=== PATIENT | male | born 1990 | race Caucasian/White ===

== ENCOUNTER → 2021-05-05 | Outpatient (CLI) | payer OTHER, SELFPAY | END | disposition home or self-care (01) | LOC: LABSPEC 05-06 14:50 | PROVIDERS: Visit Provider Physician Assistant | DX: Z20.822 Contact with and (suspected) exposure to COVID-19 (principal) | CPT/HCPCS: 87635; U0005; U0003 ==

== ENCOUNTER 2023-08-24 14:53 | Inpatient (IN) | payer BC, SELFPAY ==
[2023-08-24] VITALS (10 sets, daily range): BP systolic 122–156; BP diastolic 86–112; PULSE 140–151; RESP 20–28; TEMP 36.8–37.2; O2SAT 92–96; BMI 27.9; BMI 30.2
--- OUTSIDE RECORDS SUMMARY | 2023-08-24 16:16 | XMS RPT_ITS | CCD ---
Author Name Unknown Address [address] [place] [address] Organization [facility] Care Team Providers Care [employer] Park[employer] Name Role Phone Unavailable Primary Care Provider Unavaildavid e CHARLA BATEMAN Referring Unavailable CHALRA BATEMAN Referring Unavailable Problems Problem Classification Problem Date Documented Da te Episodic/Chronic Immunizations and screening for infectious disease (1 source) Suspected disease caused by 2019-nCoV; Translations: [Suspected COVID-19 virus infection] Episodic Unclassified (1 source) Suspected COVID-19 virus infection; Translations: [Suspected COVID-19 virus infection] Onset: 09-02-2021 Results Test Name Value Interpretation Reference Range Facil ity Encounters Encounter Date Encounter Type Care Provider Facility Start: 07-14-2022 End: 07-14-2022 ambulatory CHARLA BATEMAN Facility:[facility] Start: 07-14-2022 Telephone encounter Charla gardner 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 Work Phone: [facility] Plan of Treatment Date Care Activity Detail Author Start: 07-14-2022 End: 07-28-2022 Influenza virus A and B RNA and SARS-CoV-2 (COVID-19) N gene panel - Respiratory specimen by BRYAN with probe detection COVID WITH FLUA+B, ROUTINE Microbiology Routine Suspected COVID-19 virus infection Expected: 07/14/2022, Expires: 07/28/2022 [facility] Work Phone: Payers Date Payer Category Payer Unknown MMO MMO [employer] [id number] 2020-Present [phone] [address] [place] [address] PPO [id number] 2020 Unknown [id number] Social History Date Type Detail Facility Tobacco smoking status NHIS Tobacco smoking consumption unknown [facility] Work Phone: Start: 1990 Sex Assigned At Not on file C [facility] Influenza virus A and B RNA and SARS-CoV-2 (COVID-19) N gene panel BRYAN+probe (Resp) 07-14-2022 Note Date & Type Note Facility 07-14-2022 Influenza virus A and B RNA and SARS-CoV-2 (COVID-19) N gene panel BRYAN+probe (Resp) COVID 19 RESULT: SARS-CoV-2 (Agent of COVID-19) Detected by RT-PCR or equivalent method. komal [id number]_[employer] (ALLYSON)_EUA This test was developed and its performance characteristics determined by [facility]'s [facility]. This test has been authorized by FDA under an Emergency Use Authorization (EUA). This test has been validated in accordance with the FDA's Guidance Document Policy for Diagnostics Testing in Laboratories Certified to Perform High Complexity Testing under CLIA prior to Emergency use Authorization for Coronavirus Disease 2019 during the Public Health Emergency issued on October 26, 2019. Test performed by [facility], [facility], [address] [place] [address]. INFLUENZA A PCR: Negative for Influenza A by RT-PCR INFLUENZA B PCR: Negative for Influenza B by RT-PCR [facility] Note 07-14-2022 Telephone Encounter - Charla Bateman APRN.ELECTRICAL ELECTRONICS TECHNICIAN - 07/14/2022 11:24 AM EST Note Date & Type Note Facility 07-14-2022 Miscellaneous Notes Formattin g of this note might be different from the original. COVID-19 (Novel Coronavirus): Jonas calls today with concerns for COVID19. Symptoms: Positive rapid test, sinus congestion, loose stools, cough. You are being tested for COVID-19. You will be notified within 2 days of testing if your test comes back positive. You will be contacted at the number verified to coordinate a testing appointment. While awaiting these results, please refer to the following recommendations from the CDC regarding isolation precautions: No primary care provider on file. has been cc'd to receive Jonas's results. Steps to Follow: Isolation: You should follow the prevention steps below until a healthcare provider or local or state health department says you can return to your normal activities. Stay home except to get medical care People who are mildly ill with COVID-19 are able to isolate at home during their illness. You should restrict activities outside your home, except for getting medical care. Do not go to work, school, or public areas. Avoid using public transportation, ride-sharing, taxis, or public air travel. Separate yourself from other people and animals in your home People: As much as possible, you should stay in a specific room and away from other people in your home. Also, you should use a separate bathroom, if available. Animals: You should restrict contact with pets and other animals while you are sick with COVID-19, just like you would around other people. Although there have not been reports of pets or other animals becoming sick with COVID-19, it is still recommended that people sick with COVID-19 limit contact with animals until more information is known about the virus. When possible, have another member of your household care for your animals while you are sick. If you are sick with COVID-19, avoid contact with your pet, including petting, snuggling, being kissed or licked, and sharing food. If you must care for your pet or be around animals while you are sick, wash your hands before and after you interact with pets and wear a facemask. See COVID-19 and Animals for more information. Call ahead before visiting your doctor If you have a medical appointment, call the healthcare provider and tell them that you have or may have COVID-19. This will help the healthcare provider's office take steps to keep other people from getting infected or exposed. Personal Protection: You should wear a facemask when you are around other people (e.g., sharing a room or vehicle) or pets. If you are not able to wear a facemask (for example, because it causes trouble breathing), then people who live with you should not stay in the same room with you, or they should wear a facemask if they enter your room. Cover your coughs and sneezes Cover your mouth and nose with a tissue when you cough or sneeze. Throw used tissues in a lined trash can. Immediately wash your hands with soap and water for at least 20 seconds or, if soap and water are not available, clean your hands with an alcohol-based hand retail sales associate that contains at least 60% alcohol. Wash your hands often with soap and water for at least 20 seconds, especially after blowing your nose, coughing, or sneezing; going to the bathroom; and before eating or preparing food. If soap and water are not readily available, use an alcohol-based hand retail sales associate with at least 60% alcohol, covering all surfaces of your hands and rubbing them together until they feel dry. Soap and water are the best option if hands are visibly dirty. Avoid touching your eyes, nose, and mouth with unwashed hands. Avoid sharing personal household items You should not share dishes, drinking glasses, cups, eating utensils, towels, or bedding with other people or pets in your home. After using these items, they should be washed thoroughly with soap and water. Clean all High-touch surfaces everyday High touch surfaces include counters, tabletops, doorknobs, bathroom fixtures, toilets, phones, keyboards, tablets, and bedside tables. Use a household cleaning spray or wipe, according to the label instructions. Labels contain instructions for safe and effective use of the cleaning product including precautions you should take when applying the product, such as wearing gloves and making sure you have good ventilation during use of the product. Monitor your symptoms: Seek prompt medical attention if your illness is worsening (e.g., difficulty breathing). Before seeking care, call your healthcare provider and tell them that you have, or are being evaluated for, COVID-19. Put on a facemask before you enter the facility. These steps will help the healthcare provider's office to keep other people in the office or waiting room from getting infected or exposed. If you have a medical emergency and need to call 911, notify the dispatch personnel that you have, or are being evaluated for COVID-19. If possible, put on a facemask before emergency medical services arrive. Discontinuing home isolation: Patients with confirmed COVID-19 should remain under home isolation precautions until the risk of secondary transmission to others is thought to be low. The decision to discontinue home isolation precautions should be made on a [id number] basis, in consultation with healthcare providers and state and local health departments. Close contacts (household members, intimate partners, and caregivers) should follow these recommendations: Close contacts should monitor their health; they should call their healthcare provider right away if they develop symptoms suggestive of COVID-19 (e.g., fever, cough, shortness of breath) (see Interim [place] Guidance for Risk Assessment and Public Health Management of Persons with Potential Coronavirus Disease 2019 (COVID-19) Exposure in Travel-associated or Community Settings.) Make sure that you understand and can help the patient follow their healthcare provider's instructions for medication(s) and care. You should help the patient with basic needs in the home and provide support for getting groceries, prescriptions, and other personal needs. Monitor the patient's symptoms. If the patient is getting sicker, call their healthcare provider and tell them that the patient is being tested for COVID-19. This will help the healthcare provider's office take steps to keep other people in the office or waiting room from getting infected. Ask the healthcare provider to call the local or state health department for additional guidance. If the patient has a medical emergency and you need to call 911, notify the dispatch personnel that the patient has, or is being evaluated for COVID-19. Household members should stay in another room or be from the patient as much as possible. Household members should use a separate bedroom and bathroom, if available. Prohibit visitors who do not have an essential need to be in the home. Make sure that shared spaces in the home have good air flow, such as by an air conditioner or an opened window, weather permitting. Perform hand hygiene frequently. Wash your hands often with soap and water for at least 20 seconds or use an alcohol-based hand retail sales associate that contains 60 to 95% alcohol, covering all surfaces of your hands and rubbing them together until they feel dry. Soap and water should be used preferentially if hands are visibly dirty. Avoid touching your eyes, nose, and mouth with unwashed hands. The patient should wear a facemask when around other people. If the patient is not able to wear a facemask (for example, because it causes trouble breathing), you, as the caregiver, should wear a mask when you are in the same room as the patient. Wear a disposable facemask and gloves when you touch or have contact with the patient's blood, stool, or body fluids, such as saliva, sputum, nasal mucus, vomit, urine. Throw out disposable facemasks and gloves after using them. Do not reuse. When removing personal protective equipment, first remove and dispose of gloves. Then, immediately clean your hands with soap and water or alcohol-based hand retail sales associate. Next, remove and dispose of facemask, and immediately clean your hands again with soap and water or alcohol-based hand retail sales associate. Avoid sharing household items with the patient. You should not share dishes, drinking glasses, cups, eating utensils, towels, bedding, or other items. After the patient uses these items, you should wash them thoroughly Wash laundry thoroughly. Immediately remove and wash clothes or bedding that have blood, stool, or body fluids on them. Wear disposable gloves while handling soiled items and keep soiled items away from your body. Clean your hands (with soap and water or an alcohol-based hand retail sales associate) immediately after removing your gloves. Read and follow directions on labels of laundry or clothing items and detergent. In general, using a normal laundry detergent according to washing machine instructions and dry thoroughly using the warmest temperatures recommended on the clothing label. Place all used disposable gloves, facemasks, and other contaminated items in a lined container before disposing of them with other household waste. Clean your hands (with soap and water or an alcohol-based hand retail sales associate) immediately after handling these items. Soap and water should be used preferentially if hands are visibly dirty. Discuss any additional questions with your state or local health department or healthcare provider. Additional information Home healthcare personnel should refer to Interim Infection Prevention and Control Recommendations for Patients with Known or Patients Under Investigation for Coronavirus Disease 2019 (COVID-19) in a Healthcare Setting. Close contact is defined as-- a) being within approximately 6 feet (2 meters) of a COVID-19 case for a prolonged period of time; close contact can occur while caring for, living with, visiting, or sharing a health care waiting area or room with a COVID-19 case - or - b) having direct contact with infectious secretions of a COVID-19 case (e.g., being coughed on). documented in this encounter [facility] Evaluation note Note Date & Type Note Facility documented in this encounter [facility] Summary Purpose Family History No Family History Records Found Advance Directives No Advanced Directives Records Found Additional Source Comments Source Comments (unrecognize d section and content) In the event this informatio n is protected by the Federal Confidentiality of Alcohol and Drug Abuse Patient Records regulations: The Federal rules restrict any use of the information to criminally investigate or prosecute any alcohol or drug abuse patient.[facility] Reason for Visit (unrecogniz ed section and content) (unrecognized sect ion and content) No Status Records Found INFORMATION SOURCE (unrecogn ized section and content) FOR RECORDS PERTAINING TO PATIENTS WHO ARE OR HAVE BEEN ENROLLED IN A CHEMICAL DEPENDENCY/SUBSTANCEABUSE PROGRAM, SOME INFORMATION MAY BE OMITTED. This clinical summary was aggregated from multiple sources. Caution should be exercised in using it in the provision of clinical care. This summary normalizes information from multiple sources, and as a consequence, information in this document may materially change the coding, format and clinical context of patient data. In addition, data may be omitted in some cases. CLINICAL DECISIONS SHOULD BE BASED ON THE PRIMARY CLINICAL RECORDS. [facility]. provides no warranty or guarantee of the accuracy or completeness of information in this document.
--- NOTE | 2023-08-24 16:32 | EDS_ITS ---
HPI History of Present Illness Chief Complaint: Shortness of Breath Informant: patient Associated Symptoms cough Chest Pain: Positive for None Narrative Narrative: Patient on day #3 of illness with cough, nausea/vomiting, subjective fevers and chills, myalgias, headache, malaise, along with bilateral chest pain and some shortness of breath. He is a healthy 33-year-old male. No history of DVT or PE or recent leg pain or swelling. No recent immobilization, long travel, hospitalization, or surgery. He denies any pleuritic symptoms. States he cannot hold any fluids down he has not had anything to eat in 4 days and is not having any bowel movement but denies any abdominal pain. Positive sick contact at work who had allegedly had COVID. PFSH [facility] Medical History (Updated 08/24/23 @ 18:[address] Clifford Uribe MD) Encounter for screening for COVID-19 Medical History no medical history no medical history Home Medications NK 05/05/21 [History Last Taken Unknown] Allergy/AdvReac Type Severity Reaction Status Date / Time No Known Allergies Allergy Verified 08/24/23 14:53 Family History (Updated 05/05/21 @ 14:28 by Yolanda West) Other Cancer Diabetes Social History Smoking Status: Never smoker ROS ROS ED Constitutional Constitutional ED: Reports body ache(s), chills, fatigue, fever(s), headache(s) and malaise Eyes Eyes: Denies change in vision or diplopia ENT ENT ED: Denies rhinorrhea or sore throat Cardiovascular Cardiovascular: Reports chest pain; Denies leg edema, palpitations or syncope Respiratory/Chest Respiratory/Chest: Reports cough, dyspnea, dyspnea on exertion and sputum Gastrointestinal Gastrointestinal: Reports nausea and vomiting; Denies abdominal pain or diarrhea Genitourinary Genitourinary ED: Denies dysuria or hematuria Musculoskeletal Musculoskeletal: Denies back pain or neck pain Integumentary Denies abscess or rash Neurologic Neurologic: Reports headache(s); Denies paresthesias or weakness Psychiatric Psychiatric: Denies anxiety or suicidal thoughts EXAM Physical Exam Const Vital Signs: 08/24/23 14:54 08/24/23 15:38 08/24/23 15:38 Temperature 99 F Temperature Source Temporal Pulse Rate 145 H 149 H Respiratory Rate 25 H 27 H Respiratory Effort Short of Breath Respiratory Depth Shallow Respiratory Pattern Normal Blood Pressure 122/89 H 156/107 H Blood Pressure Mean 100 123 Pulse Ox 95 96 Oxygen Delivery Method Room Air Room Air Room Air 08/24/23 16:45 08/24/23 18:00 08/24/23 18:54 Temperature 98.7 F 98.9 F 98.2 F Temperature Source Temporal Temporal Oral Pulse Rate 150 H 151 H Respiratory Rate 28 H 27 H Respiratory Effort Respiratory Depth Respiratory Pattern Blood Pressure 140/89 H 142/112 H Blood Pressure Mean 106 122 Pulse Ox 93 92 Oxygen Delivery Method Room Air Room Air 08/24/23 19:42 Temperature Temperature Source Pulse Rate 142 H Respiratory Rate 24 H Respiratory Effort Respiratory Depth Respiratory Pattern Tachypnea Blood Pressure Blood Pressure Mean Pulse Ox Oxygen Delivery Method Positive well nourished and well developed Constitutional Narrative: Malaised-appearing, no distress Actively vomiting nonbilious nonbloody emesis General Appearance ED: well developed and NAD HEENT Reports moist mucous membranes normocephalic and atraumatic Eyes PERRL and EOMs intact bilaterally Neck full ROM, no lymphadenopathy, supple and no meningeal signs Resp Resp Narrative: tachypneic. No respiratory distress. Rales and rhonchi in the left base otherwise clear. Cardio regular rate, regular rhythm and no murmurs Rate: tachycardic GI non-tender and non-distended Auscultation: normoactive bowel sounds Palpation: soft Back/Spine no CVA tenderness General Back: other FROM Extremity normal to inspection and no calf tenderness General Extremety ED: Negative for edema, pulses abnormal or tenderness General Extremity: Negative for edema or pulses abnormal Neuro oriented x3, CN's II-XII intact bilaterally and no sensory deficits noted Sensorium / Orientation: awake and alert Speech: speech normal Gait (Neuro): normal gait Motor Exam: strength 5/5 throughout Psych mental status grossly normal Skin no rashes or lesions noted and no wounds Sepsis Attestation Sepsis Alert: Yes Sepsis Attestation: Agree w/Sepsis Date exam was performed: 08/24/23 Time exam was performed: 18:15 Possible Source of Sepsis: Pulmonary Sepsis Organ Dysfunction Criteria Present: Lactic Acid > 2 mmol/L and Serum CO2 < 20 mmol/L (on BMP) Fluid Resuscitation Fluid resuscitation indicated?: Yes Fluid Resuscitation ordered: 30 ml/kg fluid bolus ordered Amount of fluid ordered: 3,000 Sepsis Note Date exam was performed: 08/24/23 Time exam was performed: 19:30 Sepsis Attestation: Sepsis re-evaluation was performed (Persistent tachycardia. No respiratory failure. Perfused extremities and intact pulses, blood pressure stable.) MDM MDM MDM Narrative Medical decision making narrative: Clinically patient with Rales and rhonchi in the left base and concern of pneumonia here, and his basilar that could be causing his vomiting. 2 view chest x-ray my interpretation confirms this, left lower lobe pneumonia. Radiology in agreement. He has a significant leukocytosis. At this point still tachycardic better with Zofran wanting some Mylanta which is ordered in addition to sepsis-protocol pneumonia antibiotics. His lactate returned at 4.8. IV fluids ordered to complete the 30 cc/kg IV fluid bolus. His blood sugar is 434 and he is not a known diabetic. Insulin ordered for that and we will reevaluate. He still having significant chest discomfort despite his troponin being within normal limits, he states it feels like bad reflux despite getting Mylanta. He wants something else. Ordered viscous lidocaine as well as an albuterol aerosol, discussed with medicine for admission to PCU to continue treatment. Lab Data Attestation: I reviewed the patient's lab results. Labs: Laboratory Results - last 24 hr 08/24/23 16:44 WBC 18.4 H RBC 5.60 Hgb 16.4 Hct 47.2 MCV 84.3 MCH 29.3 MCHC 34.7 RDW Std Deviation 34.7 L RDW Coeff of Zarina 11.3 L Plt Count 301 MPV 9.4 Immature Gran % (Auto) 0.400 Neut % (Auto) 88.7 H Lymph % (Auto) 4.6 L Sully % (Auto) 5.5 Eos % (Auto) 0.0 Baso % (Auto) 0.8 Absolute Neuts (auto) 16.4 H Absolute Lymphs (auto) 0.85 Nucleated RBC % 0 Differential Comment SCANNED PT 15.5 H INR 1.2 APTT 37.8 H Sodium 121 L Potassium 4.1 Chloride 82 L Carbon Dioxide 12.0 L Anion Gap 27 H BUN 21 H Creatinine 1.31 H Estim Creat Clear Calc 91.51 Est GFR (MDRD) Af Amer 80 Est GFR (MDRD) Non-Af 66 BUN/Creatinine Ratio 16.0 Glucose 434 H Lactic Acid 4.8 H* Calcium 13.8 H* Total Bilirubin 1.40 H AST 119 H ALT 144 H Alkaline Phosphatase 113 Troponin I High Sens 7 Total Protein 8.8 H Albumin 2.6 L Globulin 6.2 H Albumin/Globulin Ratio 0.4 L Radiography Diagnostic Testing: Clinical Impression(s) from Imaging Studies Chest X-Ray 08/24/23 17:00 IMPRESSION: Left lower lobe infiltrate consistent with pneumonia. Electronically Signed: Pro Augustine MD at 17:31 EST , Rhythm Strip Rhythm Strip: Sinus Tach Rate: 150 Ectopy: None EKG Initial EKG: Attestation: I personally reviewed and interpreted this EKG as follows: Interpretation: No Acute Injury Pattern, Sinus Tachycardia and Non- Specific ST Changes Management Discussion w/another healthcare provider: Hospitalist Critical Care Time Critical Care Time: Yes Critical care time (excluding procedures): 30-74 minutes (32 min), Including time spent:, Discussing w/Patient &/or Family/Home Housekeeper, Discussing w/Consultants, Arranging Admission or Transfer and Performing Direct Patient Care at Bedside Discharge Plan Dx/Rx/DC Orders Clinical Impression: Acute hyperglycemia, Sepsis due to pneumonia, Pneumonia, Hypercalcemia Disposition Disposition: [facility] Discharge Date/Time: 08/24/23 20:45
[2023-08-24] MEDS: 0.9% Normal Saline (1000mL) 1,000 ML 999 ML IV ×2 (16:43→18:27)
[2023-08-24] MEDS: Ondansetron 4 MG/2 ML Vial IV ×2 (16:43→22:54)
--- NOTE | 2023-08-24 16:48 | ED.RN ---
NO OLD EKG
--- NOTE | 2023-08-24 17:00 | RAD_ITS ---
INDICATION: Cough and shortness of breath EXAMINATION/TECHNIQUE: X-RAY - XR Chest 2 Views COMPARISON: None. FINDINGS: LINES/DEVICES: None. LUNGS: Left lower lobe posterior airspace consolidation. No pleural effusion. MEDIASTINUM AND CARDIOVASCULAR STRUCTURES: Cardiac silhouette not enlarged. Central airways and mediastinal contour are unremarkable. BONES AND SOFT TISSUES: Unremarkable. RAD/Chest PA and Lateral IMPRESSION: Left lower lobe infiltrate consistent with pneumonia. Electronically Signed: Pro Augustine MD at 17:31 EST ,
[2023-08-24 17:05] LABS: Absolute Lymphocyte Count 0.85 X10^3/uL (0.83-4.51); Absolute Neutrophil Count 16.4 X10^3/uL (2.0-7.7); Basophil# 0.14 X10^3/uL; Basophil% 0.8 % (0-1); Hematocrit 47.2 % (40-54); Hemoglobin 16.4 g/dL (13.0-16.5); Lymphocyte # 0.85 X10^3/ul (0.83-4.51); Lymphocyte % 4.6 % (19-41); Mean Corp Hgb Conc 34.7 g/dL (32-36); Mean Corpuscular Hgb 29.3 pg (27.0-32.0); Mean Corpuscular Volume 84.3 fL (80-94); Mean Platelet Vol. 9.4 fl (6.2-12.0); Monocyte# 1.01 X10^3/uL; Monocyte% 5.5 % (0-10); NRBC Flagged by Analyzer 0 % (0-5); Neutrophil # 16.35 X10^3/uL (2.7-7.7); Neutrophil % 88.7 % (47-70); POSITIVE MORPHOLOGY YES; Platelet Count 301 K/mm3 (150-450); RBC Distribution Width CV 11.3 % (11.6-14.6); RBC Distribution Width SD 34.7 fl (35.1-43.9); White Blood Count 18.4 K/mm3 (4.4-11.0)
[2023-08-24 17:09] LABS: Differential Indicated SCAN CRITERIA MET
[2023-08-24 17:13] LABS: Partial Thromboplast Time 37.8 Seconds (24.1-36.2)
[2023-08-24 17:20] LABS: International Normalized Ratio 1.2; Prothrombin Time (Protime)PT. 15.5 SECONDS (11.7-14.9)
[2023-08-24 17:36] LABS: Differential Comment SCANNED
[2023-08-24 17:55] LABS: ALB/GLOB Ratio 0.4 RATIO (0.9-2.4); AST(SGOT) 119 U/L (15-37); Alanine Aminotransfer ALT/SGPT 144 U/L (16-61); Albumin, Serum 2.6 g/dL (3.2-5.0); Alkaline Phosphatase 113 U/L (45-117); Anion Gap 27 (5-15); BUN 21 mg/dL (7-18); Calcium,Total 13.8 mg/dL (8.5-10.1); Chloride 82 mmol/L (98-107); Creatinine, Serum 1.31 mg/dL (0.70-1.30); EST Glomerular Filtration Rate 66 mL/min (>60); Est Glom Filt Rate - Afr Amer 80 mL/min (>60); Estimated Creatinine Clearance 91.51 ml/min; Globulin 6.2 g/dL (2.2-4.2); Glucose 434 mg/dL (74-106); Lactic Acid 4.8 mmol/L (0.4-1.9); Potassium 4.1 mmol/L (3.5-5.1); Protein, Total 8.8 g/dL (6.4-8.2); Sodium Level 121 mmol/L (136-145); Troponin-I HS 7 pg/mL (3.0-78.0)
[2023-08-24] MEDS: Mag Hydrox/Al Hydrox/Simeth 30 ML UDC PO (18:23)
[2023-08-24] MEDS: Ceftriaxone 2 GM in 0.9% Normal Saline (50mL MB+) 50 ML IV (18:26)
[2023-08-24] MEDS: 0.9% Normal Saline 1,000 ML IV.SOLN. 964 ML OPERA.SITE (18:39)
[2023-08-24] MEDS: Azithromycin 500 MG in Dextrose 5%-Water (250mL Bag) 250 ML 250 MG IV (18:45)
--- NOTE | 2023-08-24 19:14 | PCM.HP.STD ---
HPI - General General Date of Admission: 08/24/23 Date of Service: 08/24/23 Chief Complaint: Nausea/vomiting, malaise HPI Narrative JONAS MCLEOD, is a 33 M who presented to [facility] ED on 08/24/2023 with a 3-day history of nausea/vomiting, malaise, subjective fevers and chills, myalgias and cough. Patient seen at bedside in the ED. Patient is very healthy at baseline, does not take medications at home, no previous history of any significant medical issues. 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 Denies any significant work exposures. Has had a few coworkers that have had mild upper respiratory illnesses recently, and has a friend that currently is COVID. Patient had COVID in the past, states he feels much sicker now compared to when he had COVID. Patient notably has a younger brother who was diagnosed with type 1 diabetes mellitus in his early to mid 20s, seemed to have a similar presentation to his at that time. Patient states that his mother and brother are concerned that he could have new onset diabetes. Patient has had fairly significant nausea and vomiting over the last 3 days. He has not been able to eat or drink much at all during that timeframe. He reports a mild cough over that time that is nonproductive in nature. Reports intermittent fevers and chills. Reports mild bilateral chest pain that he attributes to vomiting and his cough. Patient otherwise denies any abdominal pain or discomfort currently. He does report some symptoms of acid reflux, states Tums have been helpful for him at home for this. No other acute concerns at this time. [facility] Medical History (Updated 08/25/23 @ 00:[address] Delta Juarez, DO) Encounter for screening for COVID-19 Medical History no medical history Home Medications NK 05/05/21 [History Last Taken Unknown] Allergy/AdvReac Type Severity Reaction Status Date / Time No Known Allergies Allergy Verified 08/24/23 14:53 Family History (Updated 05/05/21 @ 14:28 by Yolanda West) Other Cancer Diabetes Social History Smoking Status: Never smoker ROS Constitutional Constitutional: Reports chills, fatigue, fever(s) and malaise; Denies change in weight or weakness Eyes Eyes: Denies change in vision ENT HEENT: Reports headache(s) and sore throat; Denies nasal congestion, nasal discharge or sinus pressure Cardiovascular Cardiovascular: Reports rapid heart rate; Denies chest pain, dyspnea on exertion, edema, lightheadedness or palpitations Respiratory/Chest Respiratory/Chest: Reports cough; Denies dyspnea, productive cough, shortness of breath at rest, shortness of breath with exertion or wheezing Gastrointestinal Gastrointestinal: Reports diarrhea, nausea and vomiting; Denies abdominal pain or constipation Genitourinary Genitourinary: Reports urinary frequency; Denies dysuria Musculoskeletal Musculoskeletal: Denies back pain Neurologic Neurologic: Reports headache(s); Denies dizziness, focal weakness, numbness or paresthesias Vital Signs Vital Signs Vital Signs: 08/24/23 14:54 08/24/23 15:38 08/24/23 15:38 Temperature 99 F Temperature Source Temporal Pulse Rate 145 H 149 H Respiratory Rate 25 H 27 H Respiratory Effort Short of Breath Respiratory Depth Shallow Respiratory Pattern Normal Blood Pressure 122/89 H 156/107 H Blood Pressure Mean 100 123 Pulse Ox 95 96 Oxygen Delivery Method Room Air Room Air Room Air 08/24/23 16:45 08/24/23 18:00 08/24/23 18:54 Temperature 98.7 F 98.9 F 98.2 F Temperature Source Temporal Temporal Oral Pulse Rate 150 H 151 H Respiratory Rate 28 H 27 H Respiratory Effort Respiratory Depth Respiratory Pattern Blood Pressure 140/89 H 142/112 H Blood Pressure Mean 106 122 Pulse Ox 93 92 Oxygen Delivery Method Room Air Room Air Weight Weight: 98.8 kg Body Mass Index (BMI) 27.9 Physical Exam Const alert, oriented x3, no apparent distress, average body habitus, healthy appearing and well nourished Constitutional Narrative: Pleasant younger male, sitting up in bed, appears mildly flushed in the face and fatigued, otherwise conversing normally, no acute distress. General Appearance: cooperative, comfortable, well kempt and well developed HEENT normocephalic, head/scalp atraumatic, hearing grossly normal bilaterally and nasal mucous membranes and turbinates normal HEENT Narrative: Dry mucous membranes. Eyes PERRL, EOMs intact bilaterally and conjunctivae normal Neck full ROM, no lymphadenopathy and supple Lymph Lymphatic: no lymphadenopathy noted Chest inspection of chest normal Resp normal respiratory effort, normal air movement, no use of accessory muscles and clear to auscultation bilaterally Cardio no murmurs and peripheral pulses 2+ throughout Cardio Narrative: Sinus tachycardia. GI normal to inspection, nondistended, normoactive bowel sounds, soft to palpation, non-tender and non-distended Back/Spine normal ROM Extremity normal to inspection, full ROM and no pedal edema Skin no rashes or lesions noted Neuro moves all extremities and no focal motor deficits Speech: speech normal Psych mental status grossly normal Results Lab / Micro Data 08/24/23 16:44 08/24/23 21:03 Labs: Laboratory Results - last 24 hr 08/24/23 16:44: WBC 18.4 H, RBC 5.60, Hgb 16.4, Hct 47.2, MCV 84.3, MCH 29.3, MCHC 34.7, RDW Std Deviation 34.7 L, RDW Coeff of Zarina 11.3 L, Plt Count 301, MPV 9.4, Immature Gran % (Auto) 0.400, Neut % (Auto) 88.7 H, Lymph % (Auto) 4.6 L, [place] % (Auto) 5.5, Eos % (Auto) 0.0, Baso % (Auto) 0.8, Absolute Neuts (auto) 16.4 H, Absolute Lymphs (auto) 0.85, Nucleated RBC % 0, Differential Comment SCANNED, PT 15.5 H, INR 1.2, APTT 37.8 H, Sodium 121 L, Potassium 4.1, Chloride 82 L, Carbon Dioxide 12.0 L, Anion Gap 27 H, BUN 21 H, Creatinine 1.31 H, Estim Creat Clear Calc 91.51, Est GFR (MDRD) Af Amer 80, Est GFR (MDRD) Non-Af 66, BUN/Creatinine Ratio 16.0, Glucose 434 H, Lactic Acid 4.8 H*, Calcium 13.8 H*, Total Bilirubin 1.40 H, AST 119 H, ALT 144 H, Alkaline Phosphatase 113, Troponin I High Sens 7, Total Protein 8.8 H, Albumin 2.6 L, Globulin 6.2 H, Albumin/Globulin Ratio 0.4 L Micro: Microbiology 08/24/23 16:45 Nasal Secretion SARS-CoV-2 & FLU Antigen (Rapid) - Final Rhythm Strip Rhythm Strip: Sinus Tach Rate: 150 Ectopy: None Imagaing Radiology Impression Chest X-Ray 08/24/23 17:00 IMPRESSION: Left lower lobe infiltrate consistent with pneumonia. Electronically Signed: Pro Augustine MD at 17:31 EST , Assessment & Plan Assessment/Plan (1) DKA (diabetic ketoacidoses): (2) Sepsis due to pneumonia: (3) Hypercalcemia: PLAN: Plan Patient is a 33-year-old male who presented to [facility] ED on 08/24/2023 with nausea/vomiting and malaise. 1. DKA, new onset diabetes mellitus Blood glucose 434 on admit. Initial bicarb 12, anion gap 27 but was thought this was due to lactic acidosis in setting of pneumonia with sepsis, was initially admitted to the PCU. However, repeat bicarb was 9 and UA showed 150 ketones, was presumed that patient is in DKA with new onset diabetes. ? Admit under inpatient status to the ICU. DKA order set used to place orders. Insulin drip started. Patient has received 3 L normal saline to this point, potassium 3.7, will start maintenance IV fluids with potassium supplementation. BMP every 4 hours. N.p.o. while on insulin drip. Have higher concern for new onset type 1 diabetes, as patient's brother had similar presentation a few years back and patient is not a classic type 2 diabetes patient, but cannot know for sure at this point. C-peptide ordered, but I believe this is a send out order so will take several days to result. Unable to find RAMSEY-65 order but recommend ordering this as well if possible. 2. Community-acquired pneumonia with unknown organism, sepsis without shock, anion gap metabolic acidosis with lactic acidosis Chest x-ray on admit showed left lower lobe infiltrate consistent with pneumonia. WBC count 18 K, tachycardic, tachypneic, lactate 4.8, met sepsis criteria. Afebrile, normotensive to hypertensive since admission. S/p 3 L IV fluids in the ED with improvement in tachycardia, lactate improved to 3.4. ? Treat with ceftriaxone and azithromycin for now. Sputum culture, respiratory PCR panel, urine antigens, blood cultures ordered. Trend lactate. Trend CBC. 3. Hyponatremia Sodium 121 on admit, corrected sodium of 126 with hyperglycemia. Baseline sodium unknown. Suspect secondary to very poor recent p.o. intake. Notably reports minimal alcohol use. S/p 3 L normal saline in ED, sodium improved to 124. ? Trending BMP every 4 hours. Urine sodium, urine osmolality and serum osmolality ordered. Maintenance IV fluids as noted above. 4. Elevated liver enzymes AST 119, ALT 144, alk phos 113, T. bili 1.40 on admit. Unclear etiology at this point, could be secondary to mild shock liver in setting of significant hypovolemia. Patient denies history of IV drug use. Minimal alcohol use as noted above. BMI 30 on admit, could potentially have mild degree of PEREIRA. ? Right upper quadrant ultrasound ordered. Hepatitis panel ordered. Trend LFTs. 5. Hypercalcemia, improving; protein gap Calcium 13.8 on admit, albumin 2.6, corrected calcium 14.9. Calcium improved to 11.6 with IV fluids. Unclear etiology. Protein gap noted, total protein 8.8 with albumin 2.6. ? Trend calcium daily. Maintenance IV fluids as noted above. PTH, 1?25 dihydroxy vitamin D and 25?hydroxy vitamin D ordered. Unsure of what to make of protein gap, will hold on ordering SPEP/UPEP or other orders for now, can consider ordering as needed. DVT prophylaxis: Lovenox CODE STATUS: Full code, verified Expected disposition: Home, TBD Total clinical time spent by myself addressing the patient's medical issues, reviewing all the data, and collaborating with patient's care team: 75 minutes. Charges/Coding Visit Charges Inpatient E&M: 56026 Init Hosp L3
[2023-08-24] MEDS: Albuterol 2.5 MG/3 ML VIAL.NEB. INHALATION (19:42)
[2023-08-24] MEDS: Metoclopramide 10 MG/2 ML Vial 5 MG IV (20:28)
[2023-08-24] MEDS: Insulin Lispro 100 UNIT/ML INSULN.PEN 16 UNIT SC (20:30)
--- OUTSIDE RECORDS SUMMARY | 2023-08-24 20:33 | XMS RPT_ITS | CCD ---
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 2020 Unknown [id number] Social History Date Type Detail Facility Tobacco smoking status NHIS Tobacco smoking consumption unknown [facility] Work Phone: Start: 1990 Sex Assigned At Not on file C [facility] Influenza virus A and B RNA and SARS-CoV-2 (COVID-19) N gene panel BRYAN+probe (Resp) 07-14-2022 Note Date & Type Note Facility 07-14-2022 Influenza virus A and B RNA and SARS-CoV-2 (COVID-19) N gene panel BRYAN+probe (Resp) COVID 19 RESULT: SARS-CoV-2 (Agent of COVID-19) Detected by RT-PCR or equivalent method. komal [id number] (ALLYSON)_EUA This test was developed and its performance characteristics determined by [facility]'s [facility] [place]. This test has been authorized by FDA under an Emergency Use Authorization (EUA). This test has been validated in accordance with the FDA's Guidance Document Policy for Diagnostics Testing in Laboratories Certified to Perform High Complexity Testing under CLIA prior to Emergency use Authorization for Coronavirus Disease 2019 during the Public Health Emergency issued on October 26, 2019. Test performed by [facility], [facility] [place], [address] [place] [address]. INFLUENZA A PCR: Negative for Influenza A by RT-PCR INFLUENZA B PCR: Negative for Influenza B by RT-PCR [facility] Note 07-14-2022 Telephone Encounter - Charla Bateman APRN.ROUNDING MACHINE OPERATOR - 07/14/2022 11:24 AM EST Note Date [...] clean your hands with an alcohol-based hand team primary care physician that contains at least 60% alcohol. Wash your hands often with soap and water for at least 20 seconds, especially after blowing your nose, coughing, or sneezing; going to the bathroom; and before eating or preparing food. If soap and water are not readily available, use an alcohol-based hand team primary care physician with at least 60% alcohol, covering all [...] isolation precautions should be made on a [id number] basis, in consultation with healthcare providers and [...] 20 seconds or use an alcohol-based hand team primary care physician that contains 60 to 95% alcohol, covering [...] with soap and water or alcohol-based hand team primary care physician. Next, remove and dispose of facemask, and immediately clean your hands again with soap and water or alcohol-based hand team primary care physician. Avoid sharing household items with the patient. [...] soap and water or an alcohol-based hand team primary care physician) immediately after removing your gloves. Read and [...] soap and water or an alcohol-based hand team primary care physician) immediately after handling these items. Soap and [...] being coughed on). documented in this encounter [facility] Evaluation note Note Date & Type Note Facility documented in this encounter [facility] Summary Purpose Family History No [...] or prosecute any alcohol or drug abuse patient.[facility] Reason for Visit (unrecogniz ed [...] BE BASED ON THE PRIMARY CLINICAL RECORDS. [facility] [employer] [facility]. provides no warranty or guarantee of the accuracy or completeness of information in this document.
[2023-08-24 20:47] LABS: Bacteria 0 SEEN /hpf (None Seen); Mucous, Urine 0 SEEN /hpf (<or=2+); Red Blood Cells-Urine 0 SEEN /hpf (0-5); Squamous Epithelial Cells - UA 0 SEEN /hpf (0-5); White Blood Cells 0 SEEN /hpf (0-5)
[2023-08-24 20:48] LABS: Color, Urine Yellow (Yellow); Glucose, Dipstick 1000 mg/dl (Normal); Leukocyte Esterase-Dipstick Negative /ul (Negative); Nitrite-Dipstick Negative (Negative); Occult Blood-Urine 25 /ul (Negative); Protein-Dipstick 100 mg/dl (Negative); Urine Bilirubin Dipstick Negative (Negative); Urine Clarity Clear (Clear); Urine Urobilinogen Normal (Normal)
[2023-08-24 20:51] LABS: Reflex Lactate? Y
[2023-08-24 20:52] LABS: Ketone-Dipstick 150 mg/dl (Negative)
[2023-08-24 20:59] LABS: Urine Sodium 47 mmol/L (Not Establ.)
[2023-08-24] MEDS: 0.9% Normal Saline (1000mL) 1,000 ML 100 ML IV (21:16)
[2023-08-24 21:23] LABS: Ionized Calcium 5.94 mg/dL (4.36-5.20)
[2023-08-24] MEDS: Insulin Lispro 100 UNIT/ML INSULN.PEN SC (21:27)
[2023-08-24 21:36] LABS: Anion Gap 24 (5-15); BUN 21 mg/dL (7-18); BUN/Creat Ratio 18.1 RATIO (10-20); Calcium,Total 11.6 mg/dL (8.5-10.1); Chloride 91 mmol/L (98-107); Creatinine, Serum 1.16 mg/dL (0.70-1.30); EST Glomerular Filtration Rate 76 mL/min (>60); Est Glom Filt Rate - Afr Amer 92 mL/min (>60); Estimated Creatinine Clearance 97.56 ml/min; Glucose 406 mg/dL (74-106); Potassium 3.7 mmol/L (3.5-5.1); Sodium Level 124 mmol/L (136-145)
[2023-08-24 21:37] LABS: Osmolality, Urine 654 mOsm/KG
[2023-08-24 21:37] LABS: Ionized Calcium Order 5.94; Osmolality, Serum 293 mOsm/KG (275-295)
[2023-08-24 21:47] LABS: Bedside Glucose 331 mg/dL (74-106)
[2023-08-24 22:16] LABS: Magnesium 1.9 mg/dL (1.6-2.6)
[2023-08-24 22:30] LABS: Lactic Acid 3.4 mmol/L (0.4-1.9)
[2023-08-24] MEDS: 0.9% Saline Lock 10 ML Syringe IV (22:54)
[2023-08-24] MEDS: KCL 20MEQ in 0.45%NS 20 MEQ/1,000 ML IV.SOLN. 125 MEQ IV (23:27)
[2023-08-25] VITALS (24 sets, daily range): BP systolic 119–168; BP diastolic 82–109; PULSE 101–137; RESP 18–27; TEMP 36.3–37.1; O2SAT 93–97
--- NOTE | 2023-08-25 00:02 | US_ITS ---
INDICATION: elevated LFTs, evaluate RUQ EXAMINATION: Ultrasound Right Upper Quadrant Ultrasound TECHNIQUE: Garcia-scale and color Doppler imaging was performed of the abdomen. COMPARISON: No relevant prior comparison study available FINDINGS: LIVER: The liver is echogenic in texture and mildly enlarged measuring about 18.4 cm in length. The portal vein is patent with normal hepatopedal flow. No focal hepatic lesion. No intrahepatic biliary ductal dilatation. There is no free fluid. GALLBLADDER AND BILIARY TREE: No shadowing gallstone, pericholecystic fluid or gallbladder wall thickening is demonstrated. The gallbladder wall measures 1 mm. The proximal common bile duct measures 2 mm, which is within normal limits for the patient''s age. SONOGRAPHIC ALICEA''S SIGN: Negative. PANCREAS: No focal abnormality is demonstrated in the visualized portions of the pancreas. The tail of the pancreas is obscured by bowel gas. No pancreatic ductal dilatation. KIDNEYS: The right kidney measures about 14.8 cm in length. No evidence of hydronephrosis. US/Abdomen Limited IMPRESSION: 1. Mild hepatomegaly. 2. Echogenic liver which may reflect fatty infiltration or hepatocellular disease. 3. No evidence of gallstones or biliary dilatation. Electronically Signed: Brant Callaway MD at 9:06 EST ,
[2023-08-25] MEDS: Insulin Lispro 100 UNIT in 0.9% Normal Saline (100mL Bag) 99 ML 10.0999999999999996 UNIT CONT INF (00:32)
[2023-08-25 01:13] LABS: Vitamin D,25 Hydroxy 10.4 ng/mL
[2023-08-25 01:56] LABS: Bedside Glucose 263 mg/dL (74-106)
[2023-08-25 01:56] LABS: Bedside Glucose 308 mg/dL (74-106)
[2023-08-25 02:02] LABS: Anion Gap 18 (5-15); BUN 18 mg/dL (7-18); BUN/Creat Ratio 18.7 RATIO (10-20); Calcium,Total 11.3 mg/dL (8.5-10.1); Chloride 94 mmol/L (98-107); Creatinine, Serum 0.96 mg/dL (0.70-1.30); EST Glomerular Filtration Rate 94 mL/min (>60); Est Glom Filt Rate - Afr Amer 114 mL/min (>60); Estimated Creatinine Clearance 117.88 ml/min; Glucose 262 mg/dL (74-106); Potassium 3.6 mmol/L (3.5-5.1); Sodium Level 126 mmol/L (136-145)
[2023-08-25] MEDS: KCL 20MEQ in D5.45NS 20 MEQ/1,000 ML IV.SOLN. 150 MEQ IV ×2 (02:13→08:34)
[2023-08-25 04:49] LABS: Hematocrit 37.7 % (40-54); Hemoglobin 13.3 g/dL (13.0-16.5); Mean Corp Hgb Conc 35.3 g/dL (32-36); Mean Corpuscular Hgb 28.9 pg (27.0-32.0); Platelet Count 242 K/mm3 (150-450); RBC Distribution Width CV 11.3 % (11.6-14.6); RBC Distribution Width SD 33.2 fl (35.1-43.9); White Blood Count 14.8 K/mm3 (4.4-11.0)
[2023-08-25 05:06] LABS: Bedside Glucose 225 mg/dL (74-106)
[2023-08-25 05:06] LABS: Bedside Glucose 150 mg/dL (74-106)
[2023-08-25 05:06] LABS: Bedside Glucose 200 mg/dL (74-106)
[2023-08-25 05:06] LABS: Bedside Glucose 215 mg/dL (74-106)
[2023-08-25 05:16] LABS: AST(SGOT) 54 U/L (15-37); Alanine Aminotransfer ALT/SGPT 89 U/L (16-61); Albumin, Serum 2.2 g/dL (3.2-5.0); Alkaline Phosphatase 75 U/L (45-117); Anion Gap 11 (5-15); BUN 17 mg/dL (7-18); BUN/Creat Ratio 18.4 RATIO (10-20); Bilirubin, Direct 0.29 mg/dL (0.00-0.30); Calcium,Total 10.4 mg/dL (8.5-10.1); Chloride 96 mmol/L (98-107); Creatinine, Serum 0.92 mg/dL (0.70-1.30); EST Glomerular Filtration Rate 99 mL/min (>60); Est Glom Filt Rate - Afr Amer 120 mL/min (>60); Estimated Creatinine Clearance 123.01 ml/min; Globulin 4.9 g/dL (2.2-4.2); Glucose 149 mg/dL (74-106); Potassium 3.5 mmol/L (3.5-5.1); Protein, Total 7.1 g/dL (6.4-8.2); Sodium Level 129 mmol/L (136-145)
[2023-08-25 07:54] LABS: Bedside Glucose 110 mg/dL (74-106)
[2023-08-25 08:08] LABS: Hemoglobin A1c 10.7 % (3.8-5.6)
[2023-08-25 08:47] LABS: Reflex Lactate? Y
[2023-08-25 09:09] LABS: PTHIN < 6.3 pg/mL (18.4-80.1)
--- NOTE | 2023-08-25 09:10 | CASEMGMT ---
RN CM Face to Face with patient for initial transition planning/care coordination assessment. RN CM introduced self and role at [facility]. Patient lying in bed, alert and oriented. Patient willing to participate in assessment and is able to answer all questions appropriately. Care providers, pharmacy, and demographics verified. Patient wishes to discharge home, denies need for home health at this time. Patient states he has no further needs or concerns at this time. CM to follow for discharge planning needs that may arise. PCP: No PCP, list provided with [facility] info Specialists: none Preferred Pharmacy: [facility] Insurance: Stripe Prescription Benefit: yes Living Will/HPOA: none LNOK: Living Arrangements: Patient lives with in a split level home with 7 steps and railing to enter the home. Patient is independent at home and able to ambulate stairs. Transportation: self, parents DME/HHC: Patient has BP cuff at home. Will need glucometer at discharge, script on chart. Patient denies previous HHC or SNF Disposition Plan: Patient to discharge home with family support and follow-up plans in place. Janeth FABIAN, RN, CM
[2023-08-25] MEDS: Enoxaparin 40 MG/0.4 ML Syringe SC (09:36)
[2023-08-25] MEDS: 0.9% Saline Lock 10 ML Syringe IV ×3 (09:39→20:43)
[2023-08-25 09:59] LABS: Anion Gap 11 (5-15); BUN 14 mg/dL (7-18); BUN/Creat Ratio 21.3 RATIO (10-20); Calcium,Total 10.5 mg/dL (8.5-10.1); Chloride 98 mmol/L (98-107); Creatinine, Serum 0.66 mg/dL (0.70-1.30); EST Glomerular Filtration Rate 146 mL/min (>60); Est Glom Filt Rate - Afr Amer 177 mL/min (>60); Estimated Creatinine Clearance 171.46 ml/min; Glucose 99 mg/dL (74-106); Potassium 3.2 mmol/L (3.5-5.1); Sodium Level 130 mmol/L (136-145)
[2023-08-25] MEDS: Insulin Glargine-YFGN 100 UNIT/ML Pen 10 UNIT SC (10:43)
[2023-08-25 11:07] LABS: Bedside Glucose 112 mg/dL (74-106)
[2023-08-25 11:07] LABS: Bedside Glucose 116 mg/dL (74-106)
[2023-08-25 11:07] LABS: Bedside Glucose 128 mg/dL (74-106)
[2023-08-25 11:07] LABS: Bedside Glucose 108 mg/dL (74-106)
[2023-08-25 11:07] LABS: Bedside Glucose 121 mg/dL (74-106)
[2023-08-25] MEDS: Potassium Chloride Oral Tablet 20 MEQ 40 MEQ PO (11:26)
--- NOTE | 2023-08-25 13:00 | PN_ITS ---
Subjective Subjective Patient seen and examined. He is felt much better today. He denies chest pain, shortness of breath, palpitations, dizziness, nausea or vomiting or any other symptoms. Review of systems otherwise negative. Anion gap is closed x 2. Objective Data Objective Data Vital Signs: Vital Signs Temp Pulse Resp BP Pulse Ox O2 Del Method 97.4 F L 119 H 26 H 153/93 H 94 Room Air 08/25/23 12:00 08/25/23 12:00 08/25/23 12:00 08/25/23 12:00 08/25/23 12:00 08/25/23 12:00 Oxygen Delivery Method Room Air Weight: 222 lb 10.67 oz Body Mass Index (BMI) 30.2 Intake & Output: Intake and Output for Last 24 Hours 08/23/23 08/24/23 08/25/23 23:59 23:59 23:59 Intake Total 2521.67 / 2521.67 Output Total 450 / 450 Balance 2071.67 / 2071.67 Lab / Micro Data 08/25/23 04:40 08/25/23 09:40 Labs: Laboratory Results - last 24 hr 08/24/23 16:44: WBC 18.4 H, RBC 5.60, Hgb 16.4, Hct 47.2, MCV 84.3, MCH 29.3, MCHC 34.7, RDW Std Deviation 34.7 L, RDW Coeff of Zarina 11.3 L, Plt Count 301, MPV 9.4, Immature Gran % (Auto) 0.400, Neut % (Auto) 88.7 H, Lymph % (Auto) 4.6 L, [place] % (Auto) 5.5, Eos % (Auto) 0.0, Baso % (Auto) 0.8, Absolute Neuts (auto) 16.4 H, Absolute Lymphs (auto) 0.85, Nucleated RBC % 0, Differential Comment SCANNED, PT 15.5 H, INR 1.2, APTT 37.8 H, Sodium 121 L, Potassium 4.1, Chloride 82 L, Carbon Dioxide 12.0 L, Anion Gap 27 H, BUN 21 H, Creatinine 1.31 H, Estim Creat Clear Calc 91.51, Est GFR (MDRD) Af Amer 80, Est GFR (MDRD) Non-Af 66, BUN/Creatinine Ratio 16.0, Glucose 434 H, Hemoglobin A1c 10.7 H, Lactic Acid 4.8 H*, Calcium 13.8 H*, Total Bilirubin 1.40 H, AST 119 H, ALT 144 H, Alkaline Phosphatase 113, Troponin I High Sens 7, Total Protein 8.8 H, Albumin 2.6 L, Globulin 6.2 H, Albumin/Globulin Ratio 0.4 L 08/24/23 20:40: Urine Color Yellow, Urine Clarity Clear, Urine pH 5.0, Ur Specific [place] 1.020, Urine Protein 100 H, Urine Glucose (UA) 1000 H, Urine Ketones 150 A*, Urine Occult Blood 25 H, Urine Nitrite Negative, Urine Bilirubin Negative, Urine Urobilinogen Normal, Ur Leukocyte Esterase Negative, Urine RBC 0 SEEN, Urine WBC 0 SEEN, Ur Squamous Epith Cells 0 SEEN, Urine Bacteria 0 SEEN, Urine Mucus 0 SEEN, Urine Osmolality 654, Ur Random Sodium 47, Urine Creatinine 26.90 08/24/23 21:03: Sodium 124 L, Potassium 3.7, Chloride 91 L, Carbon Dioxide 9.0 L*, Anion Gap 24 H, BUN 21 H, Creatinine 1.16, Estim Creat Clear Calc 97.56, Est GFR (MDRD) Af Amer 92, Est GFR (MDRD) Non-Af 76, BUN/Creatinine Ratio 18.1, Glucose 406 H, Serum Osmolality 293, Lactic Acid 3.4 H*, Calcium 11.6 H, Magne sium 1.9 08/24/23 21:19: Ionized Calcium 5.94 H 08/24/23 21:26: POC Glucose 331 H 08/24/23 23:29: POC Glucose 263 H 08/25/23 00:20: Vitamin D 25-Hydroxy 10.4, PTH Intact < 6.3 L 08/25/23 00:38: POC Glucose 308 H 08/25/23 01:40: Sodium 126 L, Potassium 3.6, Chloride 94 L, Carbon Dioxide 14.0 L, Anion Gap 18 H, BUN 18, Creatinine 0.96, Estim Creat Clear Calc 117.88, Est GFR (MDRD) Af Amer 114, Est GFR (MDRD) Non-Af 94, BUN/Creatinine Ratio 18.7, Glucose 262 H, Calcium 11.3 H, POC Glucose 225 H 08/25/23 02:35: POC Glucose 215 H 08/25/23 03:32: POC Glucose 200 H 08/25/23 04:38: POC Glucose 150 H 08/25/23 04:40: WBC 14.8 H, RBC 4.60, Hgb 13.3, Hct 37.7 L, MCV 82.0, MCH 28.9, MCHC 35.3, RDW Std Deviation 33.2 L, RDW Coeff of Zarina 11.3 L, Plt Count 242, MPV 9.0, Sodium 129 L 08/25/23 04:40: Sodium Cancelled, Potassium 3.5 08/25/23 04:40: Potassium Cancelled, Chloride 96 L 08/25/23 04:40: Chloride Cancelled, Carbon Dioxide 22.0 08/25/23 04:40: Carbon Dioxide Cancelled, Anion Gap 11 08/25/23 04:40: Anion Gap Cancelled, BUN 17 08/25/23 04:40: BUN Cancelled, Creatinine 0.92 08/25/23 04:40: Creatinine Cancelled, Estim Creat Clear Calc 123.01 08/25/23 04:40: Estim Creat Clear Calc Cancelled, Est GFR (MDRD) Af Amer 120 08/25/23 04:40: Est GFR (MDRD) Af Amer Cancelled, Est GFR (MDRD) Non-Af 99 08/25/23 04:40: Est GFR (MDRD) Non-Af Cancelled, BUN/Creatinine Ratio 18.4 08/25/23 04:40: BUN/Creatinine Ratio Cancelled, Glucose 149 H 08/25/23 04:40: Glucose Cancelled, Lactic Acid 2.0, Calcium 10.4 H 08/25/23 04:40: Calcium Cancelled, Total Bilirubin 0.70, Direct Bilirubin 0.29, AST 54 H, ALT 89 H, Alkaline Phosphatase 75, Total Protein 7.1, Albumin 2.2 L, Globulin 4.9 H 08/25/23 05:32: POC Glucose 128 H 08/25/23 06:26: POC Glucose 121 H 08/25/23 07:30: POC Glucose 110 H 08/25/23 08:33: POC Glucose 116 H 08/25/23 09:33: POC Glucose 112 H 08/25/23 09:40: Sodium 130 L, Potassium 3.2 L, Chloride 98, Carbon Dioxide 21.0, Anion Gap 11, BUN 14, Creatinine 0.66 L, Estim Creat Clear Calc 171.46, Est GFR (MDRD) Af Amer 177, Est GFR (MDRD) Non-Af 146, BUN/Creatinine Ratio 21.3 H, Glucose 99, Calcium 10.5 H 08/25/23 10:42: POC Glucose 108 H Micro: Microbiology 08/25/23 02:40 Sputum, Expectorated/Coughed Gram Stain - Final 08/24/23 22:35 Mucosa - Nasopharyngeal Respiratory Panel (PCR) - Final Rhinovirus 08/24/23 20:40 Urine, Clean Catch Legionella Antigen - Final 08/24/23 20:40 Urine, Clean Catch Streptococcus pneumoniae Antigen (M - Final 08/24/23 16:45 Nasal Secretion SARS-CoV-2 & FLU Antigen (Rapid) - Final Radiography Diagnostic Testing: Radiology Impression Chest X-Ray 08/24/23 17:00 IMPRESSION: Left lower lobe infiltrate consistent with pneumonia. Electronically Signed: Pro Augustine MD at 17:31 EST , Abdomen Ultrasound 08/25/23 00:02 IMPRESSION: 1. Mild hepatomegaly. 2. Echogenic liver which may reflect fatty infiltration or hepatocellular disease. 3. No evidence of gallstones or biliary dilatation. Electronically Signed: Brant Callaway MD at 9:06 EST , Rhythm Strip Rhythm Strip: Sinus Tach Rate: 150 Ectopy: None Physical Exam Const alert, oriented x3 and no apparent distress General Appearance: cooperative HEENT normocephalic, head/scalp atraumatic and oropharynx normal Eyes PERRL and EOMs intact bilaterally Neck no lymphadenopathy, supple and no JVD Lymph Lymphatic: no lymphadenopathy noted and no lymphedema noted Resp normal respiratory effort, normal air movement and clear to auscultation bilaterally Cardio regular rate, regular rhythm, S1 normal heart sound, S2 normal heart sound and no murmurs GI normal to inspection, nondistended, normoactive bowel sounds, soft to palpation, non-tender and non-distended Extremity normal capillary refill, no clubbing, cyanosis or edema and no calf tenderness General Extremity: no tenderness to palpation of joints or extremities Skin General Skin Exam: no breakdown Neuro CN's II-XII intact bilaterally, no focal motor deficits, no sensory deficits noted and deep tendon reflexes 2+ bilaterally Motor Exam: strength 5/5 throughout and general weakness Psych thought process normal and cooperative Appearance: appropriate Assessment & Plan Assessment/Plan (1) DKA (diabetic ketoacidoses): (2) Hypercalcemia: (3) Pneumonia: PLAN: Plan #DKA in a newly diagnosed diabetic * feels better today. He is still tachypneic and tachycardic * anion gap has closed x 2 * switched to SQ lantus 10 units qhs. Will add on metformin * ISS. Accuchecks ACHS * His brother has type 1 diabetes mellitus and was concerned that he could have type 1 diabetes mellitus this will C-peptide is sent off. * Will refer to endocrinology on outpatient basis. * #Community-acquired pneumonia * Chest x-ray on admission showed left lower lobe infiltrate consistent with pneumonia. Patient remained tachycardic and tachypneic. Lactic acid has trended down. * On IV ceftriaxone and azithromycin. * Urine for strep and Legionella negative. Sputum culture blood cultures pending. * wbc is down to 14.8 * respiratory panel positive for rhinovirus * in light of his persistent tachycardia and tachypnea, will get a CTA chest. * #URTI due to rhinovirus infection: complicated by pneumonia. Management as above. * #Hyponatremia: Resolving. Sodium is up to 130. Will monitor. Likely due to hyperglycemia #Elevated liver enzymes. Likely due to dehydration. Right upper quadrant ultrasound showed mild hepatomegaly with echogenic liver which may reflect fatty infiltration or hepatocellular disease #Hypercalcemia: Likely due to dehydration also. Calcium was 13.8 on admission and this trended down to 10. Will monitor. #DVT prophylaxis: Lovenox Total time spent on evaluation and management of patient, reviewing chart, discussing plan with patient, discussion with nursing and ancillary staff as well as documentation: 38 mins Charges/Coding Visit Charges Inpatient E&M: 48656 Subs Hosp L2
[2023-08-25] MEDS: Calcium Carbonate 500 MG Tablet PO ×3 (13:23→20:42)
--- NOTE | 2023-08-25 13:23 | CT_ITS ---
STUDY: CTA CHEST REASON FOR EXAM: Male, 33 years old. Shortness of breath RADIATION DOSAGE (If Supplied By Facility): CTDIvol = ( 13.45 ) mGy, DLP = ( 531.93 ) mGycm TECHNIQUE: The examination was performed with the intravenous administration of IV 100mL Isovue-370. Post-processing of the angiographic images was performed, with multiplanar reformation and 3D reconstruction. Individualized dose optimization techniques were used for this CT. COMPARISON: Chest x-ray of 08/24/2023. FINDINGS: Significant artifacts limiting the examination. There is limited enhancement of the bilateral peripheral pulmonary arteries. There is no demonstrated pulmonary embolism. Normal thoracic aorta and visualized great vessels. There is no demonstrated aortic dissection. Normal heart and pericardium. Prominent nodes in the anterior mediastinum. Prominent left hilar nodes. Normal visualized trachea and bronchi. Extensive left lower lobe infiltrate likely due to pneumonia. There are no pleural effusions. Normal chest wall structures. Essentially unremarkable osseous structures. No demonstrated acute changes in the visualized upper abdomen. CT/CTA Chest W/WO Contrast IMPRESSION: 1. No evidence of central pulmonary embolism. Suboptimal evaluation of the peripheral branches. 2. Extensive left lower lobe infiltrate likely due to pneumonia. 3. Prominent mediastinal and left hilar nodes likely reactive. Electronically Signed: Brant Callaway MD at 14:45 EST ,
[2023-08-25] MEDS: 0.9% Normal Saline (1000mL) 1,000 ML 125 ML IV ×2 (13:30→23:03)
[2023-08-25] MEDS: Insulin Lispro 100 UNIT/ML INSULN.PEN SC ×2 (16:47→21:25)
[2023-08-25 17:09] LABS: Bedside Glucose 236 mg/dL (74-106)
[2023-08-25] MEDS: Azithromycin 500 MG in Dextrose 5%-Water (250mL Bag) 250 ML 250 MG IV (20:16)
[2023-08-25] MEDS: Ondansetron 4 MG/2 ML Vial IV (20:43)
[2023-08-25] MEDS: Ceftriaxone 1 GM/50 ML BAG IV (21:18)
[2023-08-25 21:45] LABS: Bedside Glucose 329 mg/dL (74-106)
[2023-08-26] VITALS (18 sets, daily range): BP systolic 132–153; BP diastolic 88–113; PULSE 89–106; RESP 16–21; TEMP 36.2–37.1; O2SAT 95–97
[2023-08-26 03:24] LABS: Absolute Lymphocyte Count 0.89 X10^3/uL (0.83-4.51); Absolute Neutrophil Count 7.9 X10^3/uL (2.0-7.7); Basophil# 0.03 X10^3/uL; Basophil% 0.3 % (0-1); Eosinophil# 0.03 X10^3/uL; Eosinophils% 0.3 % (0-5); Hematocrit 37.4 % (40-54); Hemoglobin 13.1 g/dL (13.0-16.5); Lymphocyte # 0.89 X10^3/ul (0.83-4.51); Lymphocyte % 9.2 % (19-41); Mean Corpuscular Hgb 29.2 pg (27.0-32.0); Mean Corpuscular Volume 83.5 fL (80-94); Mean Platelet Vol. 8.9 fl (6.2-12.0); Monocyte# 0.65 X10^3/uL; Monocyte% 6.7 % (0-10); NRBC Flagged by Analyzer 0 % (0-5); Neutrophil # 7.93 X10^3/uL (2.7-7.7); Neutrophil % 81.8 % (47-70); Platelet Count 231 K/mm3 (150-450); RBC Distribution Width CV 11.5 % (11.6-14.6); RBC Distribution Width SD 34.8 fl (35.1-43.9); Red Blood Count 4.48 M/mm3 (4.6-6.2); White Blood Count 9.7 K/mm3 (4.4-11.0)
[2023-08-26 03:42] LABS: ALB/GLOB Ratio 0.4 RATIO (0.9-2.4); AST(SGOT) 40 U/L (15-37); Alanine Aminotransfer ALT/SGPT 61 U/L (16-61); Albumin, Serum 1.9 g/dL (3.2-5.0); Alkaline Phosphatase 70 U/L (45-117); Anion Gap 14 (5-15); BUN 14 mg/dL (7-18); BUN/Creat Ratio 25.9 RATIO (10-20); Calcium,Total 9.5 mg/dL (8.5-10.1); Chloride 99 mmol/L (98-107); Creatinine, Serum 0.54 mg/dL (0.70-1.30); EST Glomerular Filtration Rate 183 mL/min (>60); Est Glom Filt Rate - Afr Amer 222 mL/min (>60); Estimated Creatinine Clearance 209.57 ml/min; Globulin 4.5 g/dL (2.2-4.2); Glucose 256 mg/dL (74-106); Potassium 3.7 mmol/L (3.5-5.1); Protein, Total 6.4 g/dL (6.4-8.2); Sodium Level 131 mmol/L (136-145)
[2023-08-26 08:09] LABS: HEPATITIS B SURFACE AG Negative (Negative); Hep C Antibodies Non Reactive (Non Reactive); Hepatitis A IgM Antibody Negative (Negative); Hepatitis B Core AB IgM Negative (Negative)
[2023-08-26] MEDS: Insulin Lispro 100 UNIT/ML INSULN.PEN SC ×4 (08:19→21:06)
[2023-08-26] MEDS: Enoxaparin 40 MG/0.4 ML Syringe SC (08:19)
[2023-08-26 08:40] LABS: Bedside Glucose 282 mg/dL (74-106)
--- NOTE | 2023-08-26 09:50 | PCM.PROGNOTE ---
Subjective Subjective Patient seen and examined. He had no active complaints and was comfortably eating breakfast. He still remains tachycardic. BP is also elevated. Review of systems is otherwise negative. Objective Data Objective Data Vital Signs: Vital Signs Temp Pulse Resp BP Pulse Ox O2 Del Method 98.8 F 98 17 151/104 H 96 Room Air 08/26/23 03:00 08/26/23 06:00 08/26/23 06:00 08/26/23 06:00 08/26/23 06:00 08/26/23 06:00 Oxygen Delivery Method Room Air Weight: 222 lb 10.67 oz Body Mass Index (BMI) 30.2 Intake & Output: Intake and Output for Last 24 Hours 08/24/23 08/25/23 08/26/23 23:59 23:59 23:59 Intake Total 2521.67 / 2521.67 3887.07 / 4187.07 1300 / 1300 Output Total 450 / 450 Balance 2071.67 / 2071.67 3887.07 / 4187.07 1300 / 1300 Lab / Micro Data 08/26/23 03:17 08/26/23 03:17 Labs: Laboratory Results - last 24 hr 08/25/23 00:20: Hepatitis A IgM Ab Negative, Hep Bs Antigen Negative, Hep B Core IgM Ab Negative, Hepatitis C Ab (EIA) Non Reactive, Hep C Ab Comment Comment 08/25/23 05:32: POC Glucose 128 H 08/25/23 06:26: POC Glucose 121 H 08/25/23 08:33: POC Glucose 116 H 08/25/23 09:33: POC Glucose 112 H 08/25/23 09:40: Sodium 130 L, Potassium 3.2 L, Chloride 98, Carbon Dioxide 21.0, Anion Gap 11, BUN 14, Creatinine 0.66 L, Estim Creat Clear Calc 171.46, Est GFR (MDRD) Af Amer 177, Est GFR (MDRD) Non-Af 146, BUN/Creatinine Ratio 21.3 H, Glucose 99, Calcium 10.5 H 08/25/23 10:42: POC Glucose 108 H 08/25/23 16:41: POC Glucose 236 H 08/25/23 21:24: POC Glucose 329 H 08/26/23 03:17: WBC 9.7, RBC 4.48 L, Hgb 13.1, Hct 37.4 L, MCV 83.5, MCH 29.2, MCHC 35.0, RDW Std Deviation 34.8 L, RDW Coeff of Zarina 11.5 L, Plt Count 231, MPV 8.9, Immature Gran % (Auto) 1.700 H, Neut % (Auto) 81.8 H, Lymph % (Auto) 9.2 L, [place] % (Auto) 6.7, Eos % (Auto) 0.3, Baso % (Auto) 0.3, Absolute Neuts (auto) 7.9 H, Absolute Lymphs (auto) 0.89, Nucleated RBC % 0, Sodium 131 L, Potassium 3.7, Chloride 99, Carbon Dioxide 18.0 L, Anion Gap 14, BUN 14, Creatinine 0.54 L, Estim Creat Clear Calc 209.57, Est GFR (MDRD) Af Amer 222, Est GFR (MDRD) Non-Af 183, BUN/Creatinine Ratio 25.9 H, Glucose 256 H, Calcium 9.5, Total Bilirubin 0.50, AST 40 H, ALT 61, Alkaline Phosphatase 70, Total Protein 6.4, Albumin 1.9 L, Globulin 4.5 H, Albumin/Globulin Ratio 0.4 L 08/26/23 08:15: POC Glucose 282 H Micro: Microbiology 08/25/23 02:40 Sputum, Expectorated/Coughed Gram Stain - Final 08/24/23 22:35 Mucosa - Nasopharyngeal Respiratory Panel (PCR) - Final Rhinovirus 08/24/23 20:40 Urine, Clean Catch Legionella Antigen - Final 08/24/23 20:40 Urine, Clean Catch Streptococcus pneumoniae Antigen (M - Final 08/24/23 16:45 Nasal Secretion SARS-CoV-2 & FLU Antigen (Rapid) - Final Radiography Diagnostic Testing: Radiology Impression Chest CTA 08/25/23 13:23 IMPRESSION: 1. No evidence of central pulmonary embolism. Suboptimal evaluation of the peripheral branches. 2. Extensive left lower lobe infiltrate likely due to pneumonia. 3. Prominent mediastinal and left hilar nodes likely reactive. Electronically Signed: Brant Callaway MD at 14:45 EST , Rhythm Strip Rhythm Strip: Sinus Tach Rate: 150 Ectopy: None Physical Exam Const alert, oriented x3, no apparent distress, average body habitus, healthy appearing and well nourished General Appearance: cooperative, comfortable, well kempt and well developed HEENT normocephalic, head/scalp atraumatic, hearing grossly normal bilaterally, nasal mucous membranes and turbinates normal and oropharynx normal Eyes PERRL, EOMs intact bilaterally and conjunctivae normal Neck full ROM, no lymphadenopathy, supple and no JVD Lymph Lymphatic: no lymphadenopathy noted and no lymphedema noted Chest inspection of chest normal Resp normal respiratory effort, normal air movement, no use of accessory muscles and clear to auscultation bilaterally Cardio regular rhythm, S1 normal heart sound, S2 normal heart sound, no murmurs and peripheral pulses 2+ throughout Cardio Narrative: Sinus tachycardia. GI normal to inspection, nondistended, normoactive bowel sounds, soft to palpation, non-tender and non-distended Back/Spine normal ROM Extremity normal to inspection, full ROM, normal capillary refill, no clubbing, cyanosis or edema, no calf tenderness and no pedal edema General Extremity: no tenderness to palpation of joints or extremities Skin no rashes or lesions noted General Skin Exam: no breakdown Neuro CN's II-XII intact bilaterally, moves all extremities, no focal motor deficits, no sensory deficits noted and deep tendon reflexes 2+ bilaterally Speech: speech normal Motor Exam: strength 5/5 throughout and general weakness Psych mental status grossly normal, thought process normal and cooperative Appearance: appropriate Assessment & Plan Assessment/Plan (1) DKA (diabetic ketoacidoses): (2) Hypercalcemia: (3) Pneumonia: PLAN: Plan #DKA in a newly diagnosed diabetic feels better today. He is still tachypneic and tachycardic anion gap has closed x 2 will increase to lantus 15 units daily. Metformin on hold as he received contrast with CTA chest yesterday ISS. Accuchecks ACHS His brother has type 1 diabetes mellitus and was concerned that he could have type 1 diabetes mellitus this will C-peptide is sent off. Will refer to endocrinology on outpatient basis. A1C is 10.7 #Community-acquired pneumonia Chest x-ray on admission showed left lower lobe infiltrate consistent with pneumonia. Patient remained tachycardic and tachypneic. Lactic acid has trended down. On IV ceftriaxone and azithromycin. Urine for strep and Legionella negative. Sputum culture blood cultures pending. wbc is down to 9.7 respiratory panel positive for rhinovirus CTA chest negative for PE Continue antibiotics for now. #Sinus tachycardia Tachycardic. CT of the chest was negative for any evidence of PE but showed extensive left lower infiltrate due to pneumonia Started on p.o. metoprolol. Check TSH and free T4 #URTI due to rhinovirus infection: complicated by pneumonia. Management as above. #Hyponatremia: Resolving. Sodium is up to 131. Will monitor. #Elevated liver enzymes. resolved. Likely due to dehydration. Right upper quadrant ultrasound showed mild hepatomegaly with echogenic liver which may reflect fatty infiltration or hepatocellular disease #Elevated blood pressure: Patient blood pressure has been elevated in the 140s and 150s systolic. Will start on p.o. metoprolol 25 mg twice daily. IV hydralazine as needed. #Hypercalcemia: Likely due to dehydration also. Calcium was 13.8 on admission trended down to 9.5. Resolved. Will monitor. #DVT prophylaxis: Lovenox Total time spent on evaluation and management of patient, reviewing chart, discussing plan with patient, discussion with nursing and ancillary staff as well as documentation: 36 mins Charges/Coding Visit Charges Inpatient E&M: 84417 Subs Hosp L2
[2023-08-26] MEDS: Metoprolol Tartrate 25 MG Tablet PO ×2 (10:08→21:02)
[2023-08-26] MEDS: Insulin Glargine-YFGN 100 UNIT/ML Pen 15 UNIT SC (10:08)
[2023-08-26 10:31] LABS: T4 Free Direct 1.28 ng/dL (0.76-1.46); Thyroid Stim Hormone (TSH) 0.76 uIU/mL (0.358-3.74)
[2023-08-26 13:27] LABS: Bedside Glucose 304 mg/dL (74-106)
[2023-08-26 17:25] LABS: Bedside Glucose 261 mg/dL (74-106)
[2023-08-26] MEDS: Ceftriaxone 1 GM/50 ML BAG IV (21:02)
[2023-08-26 21:48] LABS: Bedside Glucose 272 mg/dL (74-106)
[2023-08-26] MEDS: Azithromycin 500 MG in Dextrose 5%-Water (250mL Bag) 250 ML 250 MG IV (21:49)
[2023-08-27 03:00] VITALS: BP 156/109; PULSE 95; RESP 18; TEMP 36.6; O2SAT 96
[2023-08-27] MEDS: Acetaminophen 325 MG Tablet 650 MG PO (04:14)
[2023-08-27 04:17] LABS: Absolute Neutrophil Count 3.7 X10^3/uL (2.0-7.7); Basophil# 0.02 X10^3/uL; Basophil% 0.4 % (0-1); Eosinophil# 0.08 X10^3/uL; Eosinophils% 1.5 % (0-5); Hematocrit 38.7 % (40-54); Hemoglobin 13.2 g/dL (13.0-16.5); Lymphocyte % 16.5 % (19-41); Mean Corp Hgb Conc 34.1 g/dL (32-36); Mean Corpuscular Hgb 28.4 pg (27.0-32.0); Mean Corpuscular Volume 83.4 fL (80-94); Mean Platelet Vol. 8.7 fl (6.2-12.0); Monocyte# 0.56 X10^3/uL; Monocyte% 10.3 % (0-10); NRBC Flagged by Analyzer 0 % (0-5); Neutrophil # 3.67 X10^3/uL (2.7-7.7); Neutrophil % 67.3 % (47-70); POSITIVE MORPHOLOGY YES; Platelet Count 262 K/mm3 (150-450); RBC Distribution Width CV 11.4 % (11.6-14.6); RBC Distribution Width SD 34.5 fl (35.1-43.9); Red Blood Count 4.64 M/mm3 (4.6-6.2); White Blood Count 5.5 K/mm3 (4.4-11.0)
[2023-08-27 04:36] LABS: Differential Comment SCANNED; Differential Indicated SCAN CRITERIA MET
[2023-08-27 04:45] LABS: ALB/GLOB Ratio 0.5 RATIO (0.9-2.4); AST(SGOT) 34 U/L (15-37); Alanine Aminotransfer ALT/SGPT 55 U/L (16-61); Albumin, Serum 2.1 g/dL (3.2-5.0); Alkaline Phosphatase 79 U/L (45-117); Anion Gap 13 (5-15); BUN 11 mg/dL (7-18); BUN/Creat Ratio 19.4 RATIO (10-20); Calcium,Total 9.2 mg/dL (8.5-10.1); Chloride 97 mmol/L (98-107); Creatinine, Serum 0.57 mg/dL (0.70-1.30); EST Glomerular Filtration Rate 174 mL/min (>60); Est Glom Filt Rate - Afr Amer 210 mL/min (>60); Estimated Creatinine Clearance 198.54 ml/min; Globulin 4.6 g/dL (2.2-4.2); Glucose 257 mg/dL (74-106); Potassium 3.2 mmol/L (3.5-5.1); Protein, Total 6.7 g/dL (6.4-8.2); Sodium Level 133 mmol/L (136-145)
[2023-08-27 08:40] VITALS: BP 151/103; PULSE 93; RESP 16; TEMP 36.7; O2SAT 97
[2023-08-27] MEDS: Insulin Lispro 100 UNIT/ML INSULN.PEN SC (08:47)
[2023-08-27 08:48] VITALS: PULSE 93
[2023-08-27] MEDS: Metoprolol Tartrate 25 MG Tablet PO (08:48)
[2023-08-27 09:13] LABS: Bedside Glucose 257 mg/dL (74-106)
--- NOTE | 2023-08-27 09:26 | DCINST_ITS ---
Discharge Instructions Diet Discharge Diet: 1800 Calorie Control Diet Activity Discharge Activity: Return to Normal Activity Dressing / Incision Call your doctor if you observe: Fever of 101 or Higher, Shortness of breath, Dizziness, Swelling in the ankles, Chest pain and - (poorly controlled blood sugars) Follow Up Care Test Results: Test results from this visit will be discussed in further detail at your follow- up appointment, if applicable. Discharge Plan Admission Admit Date/Time: 08/24/23 19:53 Primary Reason for Your Visit: DKA, pneumonia Attending Provider: Gaviota Oh Primary Care Provider: Care Physician,No Primary Consulting Providers: Delta Juarez Instructions Patient Instructions: Ketoacidosis Ch, ED Pneumonia (Adult) Discharge Orders/Prescriptions Prescriptions: New metformin 500 mg Tablet 500 mg PO BIDCM Qty: 60 1RF metoprolol tartrate 25 mg Tablet 25 mg PO BID Qty: 60 1RF insulin glargine [Basaglar KwikPen U-100 Insulin] 100 unit/mL (3 mL) insulin pen 15 unit subcut QPM Qty: 15 2RF (DME) needle (disp) 20 G 20 x 3/4 needle See Rx Instructions .Route Qty: 100 1RF Rx Instructions: As directed levofloxacin 750 mg tablet 750 mg PO DAILY Qty: 7 0RF Referrals / Follow Up: Samara Ma MD [Med Staff - Active Staff] - Within 2 Weeks (see to establish PCP care) Waylon Call MD [Med Staff - Courtesy Staff] - Within 1 Month (see to establish care for diabetes.) Care Physician,No Primary [Primary Care Provider] - Disposition Disposition (needs filled in before D/C Order can be placed): Home, Self Care
--- NOTE | 2023-08-27 09:35 | DS.PCM_ITS ---
Providers Date of Admission: 08/24/23 Date of Discharge: 08/27/23 Primary Care Physician: No Primary Care Phys Reason For Visit: SEPSIS WITHOUT SHOCK,PNEUMONIA Diagnosis Discharge Diagnosis (1) DKA (diabetic ketoacidoses): Status: Acute Code(s): E11.10 - Type 2 diabetes mellitus with ketoacidosis without coma (2) Hypercalcemia: Status: Acute Code(s): E83.52 - Hypercalcemia (3) Pneumonia: Status: Acute Code(s): J18.9 - Pneumonia, unspecified organism Plan #DKA in a newly diagnosed diabetic * feels better today. He is still tachypneic and tachycardic * anion gap has closed x 2 * will increase to lantus 15 units daily. Metformin on hold as he received contrast with CTA chest yesterday * ISS. Accuchecks ACHS * His brother has type 1 diabetes mellitus and was concerned that he could have type 1 diabetes mellitus this will C-peptide is sent off. * Will refer to endocrinology on outpatient basis. * A1C is 10.7 * #Community-acquired pneumonia * Chest x-ray on admission showed left lower lobe infiltrate consistent with pneumonia. Patient remained tachycardic and tachypneic. Lactic acid has trended down. * On IV ceftriaxone and azithromycin. * Urine for strep and Legionella negative. Sputum culture blood cultures pending. * wbc is down to 9.7 * respiratory panel positive for rhinovirus * CTA chest negative for PE * Continue antibiotics for now. * #Sinus tachycardia * Tachycardic. CT of the chest was negative for any evidence of PE but showed extensive left lower infiltrate due to pneumonia * Started on p.o. metoprolol. Check TSH and free T4 * #URTI due to rhinovirus infection: complicated by pneumonia. Management as above. * #Hyponatremia: Resolving. Sodium is up to 131. Will monitor. #Elevated liver enzymes. resolved. Likely due to dehydration. Right upper quadrant ultrasound showed mild hepatomegaly with echogenic liver which may reflect fatty infiltration or hepatocellular disease #Elevated blood pressure: Patient blood pressure has been elevated in the 140s and 150s systolic. Will start on p.o. metoprolol 25 mg twice daily. IV hydralazine as needed. #Hypercalcemia: Likely due to dehydration also. Calcium was 13.8 on admission trended down to 9.5. Resolved. Will monitor. #DVT prophylaxis: Lovenox Total time spent on evaluation and management of patient, reviewing chart, discussing plan with patient, discussion with nursing and ancillary staff as well as documentation: 36 mins Medications at Discharge Home Medications insulin glargine 100 unit/mL (3 mL) subcutaneous pen (Basaglar KwikPen U-100 Insulin) 15 unit (0.15 mL) subcut QPM #15 mL 08/26/23 levofloxacin 750 mg tablet 750 mg PO DAILY #7 tabs 08/26/23 metformin 500 mg tablet 500 mg PO BIDCM #60 tabs 08/26/23 metoprolol tartrate 25 mg tablet 25 mg PO BID #60 tabs 08/26/23 needle (disp) 20 G #100 ea 08/26/23 Hospital Course Operations None Procedures None Summary of Care Provided Minutes Spent on Discharge: 55 Hospital Course: Shaun is a 33 y/o male with a PMh as outlined who was admitted via the ED on 08/24/2023 with a complaint of nausea, vomiting and subjective fevers and chills as well as myalgia and cough. He had a younger brother who was diagnosed with type 1 diabetes in his early to mid 20s and so family was concerned that his presentation could be due to diabetes as well. He had had significant nausea and vomiting and cannot be able to eat or drink much at all. Review of symptoms otherwise negative. On admission, blood glucose was markedly elevated, and he had elevated anion gap as well. HE was admitted and managed for DKA. HE was admitted to the ICU and started on insulin drip. Chest x-ray also showed left lower lobe infiltrate consistent with pneumonia. WBC was elevated at 18 and lactic acid was also elevated at 4.8. He was therefore managed for community-acquired pneumonia and was placed on IV ceftriaxone and azithromycin. Patient was also hyponatremic and this was thought to be due to the hyperglycemia. This resolved with hydration. He had elevated liver enzymes and right upper quadrant ultrasound was unremarkable. He also had hypercalcemia which was also due to dehydration and resolved with hydration. Blood sugars trended downwards and anion gap closed x 2. He was therefore switched to subcu Lantus. Of note patient remained tachycardic and a CT of the chest was done which was negative for any evidence of PE. Tachycardia subsequently resolved and patient felt much better. His blood sugars remained elevated so Lantus was increased to 15 units daily. Patient made stable and was discharged home on 08/27/2023. He was placed on p.o. metformin 500 mg twice daily in addition to the subcu Lantus 15 units daily. He was also given a prescription for p.o. Levaquin for the pneumonia. He is follow-up with his primary care doctor and was referred to endocrinology on outpatient basis to establish care for his diabetes mellitus. Patient seen and examined prior to discharge. He had no active complaints. He had an uneventful night and felt well. Review of systems otherwise negative. Labs and vitals reviewed. Home medication reviewed and reconciled. Physical Exam Const alert, oriented x3, no apparent distress, average body habitus, healthy appearing and well nourished General Appearance: cooperative, comfortable, well kempt and well developed HEENT normocephalic, head/scalp atraumatic, hearing grossly normal bilaterally, nasal mucous membranes and turbinates normal and oropharynx normal Eyes PERRL, EOMs intact bilaterally and conjunctivae normal Neck full ROM, no lymphadenopathy, supple and no JVD Lymph Lymphatic: no lymphadenopathy noted and no lymphedema noted Chest inspection of chest normal Resp normal respiratory effort, normal air movement, no use of accessory muscles and clear to auscultation bilaterally Cardio regular rate, regular rhythm, S1 normal heart sound, S2 normal heart sound, no murmurs and peripheral pulses 2+ throughout GI normal to inspection, nondistended, normoactive bowel sounds, soft to palpation, non-tender and non-distended Back/Spine normal ROM Extremity normal to inspection, full ROM, normal capillary refill, no clubbing, cyanosis or edema, no calf tenderness and no pedal edema General Extremity: no tenderness to palpation of joints or extremities Skin no rashes or lesions noted General Skin Exam: no breakdown Neuro oriented x3, CN's II-XII intact bilaterally, moves all extremities, no focal motor deficits, no sensory deficits noted and deep tendon reflexes 2+ bilaterally Sensorium / Orientation: awake Speech: speech normal Motor Exam: strength 5/5 throughout and general weakness Psych mental status grossly normal, thought process normal and cooperative Appearance: appropriate Weight / BMI Weight Weight: 222 lb 10.67 oz Body Mass Index (BMI) 30.2 ABG / Lab / Microbiology Data 08/27/23 04:05 08/27/23 04:05 Laboratory: Laboratory Results - last 24 hr 08/26/23 03:17: TSH 0.76, Free T4 1.28 08/26/23 13:05: POC Glucose 304 H 08/26/23 17:04: POC Glucose 261 H 08/26/23 21:06: POC Glucose 272 H 08/27/23 04:05: WBC 5.5, RBC 4.64, Hgb 13.2, Hct 38.7 L, MCV 83.4, MCH 28.4, MCHC 34.1, RDW Std Deviation 34.5 L, RDW Coeff of Zarina 11.4 L, Plt Count 262, MPV 8.7, Immature Gran % (Auto) 4.000 H, Neut % (Auto) 67.3, Lymph % (Auto) 16.5 L, Gregg % (Auto) 10.3 H, Eos % (Auto) 1.5, Baso % (Auto) 0.4, Absolute Neuts (auto) 3.7, Absolute Lymphs (auto) 0.90, Nucleated RBC % 0, Differential Comment SCANNED, Sodium 133 L, Potassium 3.2 L, Chloride 97 L, Carbon Dioxide 23.0, Anion Gap 13, BUN 11, Creatinine 0.57 L, Estim Creat Clear Calc 198.54, Est GFR (MDRD) Af Amer 210, Est GFR (MDRD) Non-Af 174, BUN/Creatinine Ratio 19.4, Glucose 257 H, Calcium 9.2, Total Bilirubin 0.50, AST 34, ALT 55, Alkaline Phosphatase 79, Total Protein 6.7, Albumin 2.1 L, Globulin 4.6 H, Albumin/Niurka bulin Ratio 0.5 L 08/27/23 08:44: POC Glucose 257 H Microbiology: Microbiology 08/24/23 16:44 Blood Culture (Wb) - Anticubital Left Blood Culture - Preliminary No growth in 48 hours. 08/24/23 16:44 Blood Culture (Wb) - Anticubital Right Blood Culture - Preliminary No growth in 48 hours. 08/25/23 02:40 Sputum, Expectorated/Coughed Gram Stain - Final 08/24/23 22:35 Mucosa - Nasopharyngeal Respiratory Panel (PCR) - Final Rhinovirus 08/24/23 20:40 Urine, Clean Catch Legionella Antigen - Final 08/24/23 20:40 Urine, Clean Catch Streptococcus pneumoniae Antigen (M - Fin al 08/24/23 16:45 Nasal Secretion SARS-CoV-2 & FLU Antigen (Rapid) - Final D/C Instructions Discharge Diet: 1800 Calorie Control Diet Call your doctor if you observe: Fever of 101 or Higher, Shortness of breath, Dizziness, Swelling in the ankles, Chest pain and - (poorly controlled blood sugars) Meaningful Use Info Meaningful Use Diagnoses (Choose all that apply): None applicable Discharge Plan Admission Admit Date/Time: 08/24/23 19:53 Primary Reason for Your Visit: DKA, pneumonia Attending Provider: Gaviota Oh Primary Care Provider: Care Physician,No Primary Consulting Providers: Delta Juarez Instructions Patient Instructions: Ketoacidosis Ch, ED Pneumonia (Adult) Discharge Orders/Prescriptions Prescriptions: New metformin 500 mg Tablet 500 mg PO BIDCM Qty: 60 1RF metoprolol tartrate 25 mg Tablet 25 mg PO BID Qty: 60 1RF insulin glargine [Basaglar KwikPen U-100 Insulin] 100 unit/mL (3 mL) insulin pen 15 unit subcut QPM Qty: 15 2RF (DME) needle (disp) 20 G 20 x 3/4 needle See Rx Instructions .Route Qty: 100 1RF Rx Instructions: As directed levofloxacin 750 mg tablet 750 mg PO DAILY Qty: 7 0RF Referrals / Follow Up: Samara Ma MD [Med Staff - Active Staff] - Within 2 Weeks (see to establish PCP care) Waylon Call MD [Med Staff - Courtesy Staff] - Within 1 Month (see to establish care for diabetes.) Care Physician,No Primary [Primary Care Provider] - Disposition Disposition (needs filled in before D/C Order can be placed): Home, Self Care Charges/Coding Visit Charges Inpatient E&M: 78254 Disch Hosp >30min
[2023-08-27] MEDS: Insulin Glargine-YFGN 100 UNIT/ML Pen 15 UNIT SC (10:02)
[2023-08-27 13:07] LABS: C-Peptide 1.9 ng/mL (1.1-4.4)
== END 2023-08-27 11:25 | disposition home or self-care (01) | DRG 871 ==
LOC: ED 19:29 → PCU 20:29 → ICU 23:18
PROVIDERS: Admitting Provider Hospitalist; Emergency Provider Emergency Medicine; Visit Provider Student in an Organized Health Care Education/Training Program
DX: A41.9 Sepsis, unspecified organism (principal); E10.10 Type 1 diabetes mellitus with ketoacidosis without coma; J18.9 Pneumonia, unspecified organism; E87.1 Hypo-osmolality and hyponatremia; K75.81 Nonalcoholic steatohepatitis (NASH); E86.0 Dehydration; E83.52 Hypercalcemia; B34.8 Other viral infections of unspecified site
CPT/HCPCS: 36415; 71046; 71275; 76705; 80048; 80053; 80074; 80076; 81001; 82306; 82330; 82570; 82962; 83036; 83605; 83735; 83930; 83935; 83970; 84300; 84439; 84443; 84484; 84681; 85025; 85027; 85610; 85730; 87040; 87070; 87077; 87186; 87205; 87428; 87449; 87633; 93005; 94640; 94668; 97802; 99252; 99285; J7030; Q9967; A4216; G0463; J2405

== ENCOUNTER → 2023-09-01 | Outpatient (CLI) | payer BC, SELFPAY ==
--- OUTSIDE RECORDS SUMMARY | 2023-09-01 12:27 | XMS RPT_ITS | CCD ---
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 Phone: [facility] Plan of Treatment Date Care Activity Detail Author Start: 07-14-2022 End: 07-28-2022 Influenza virus A and B RNA and SARS-CoV-2 (COVID-19) N gene panel - Respiratory specimen by BRYAN with probe detection COVID WITH FLUA+B, ROUTINE Microbiology Routine Suspected COVID-19 virus infection Expected: 07/14/2022, Expires: 07/28/2022 [facility] Work Phone: Payers Date Payer Category Payer Unknown MMO MMO [employer] [id number] 2020-Present [phone] [address] [place] [address] PPO [id number] 2020 Unknown [id number] Social History Date Type Detail Facility Tobacco smoking status NHIS Tobacco smoking consumption unknown [facility] Work Phone: Start: 1990 Sex Assigned At Not on file C [facility] Influenza virus A and B RNA and SARS-CoV-2 (COVID-19) N gene panel BRYAN+probe (Resp) 07-14-2022 Note Date & Type Note Facility 07-14-2022 Influenza virus A and B RNA and SARS-CoV-2 (COVID-19) N gene panel BRYAN+probe (Resp) COVID 19 RESULT: SARS-CoV-2 (Agent of COVID-19) Detected by RT-PCR or equivalent method. komal [id number] (ALLYSON)_EUA This test was developed and its performance characteristics determined by [facility]'s [facility] [place]. This test has been authorized by FDA under an Emergency Use Authorization (EUA). This test has been validated in accordance with the FDA's Guidance Document Policy for Diagnostics Testing in Laboratories Certified to Perform High Complexity Testing under CLIA prior to Emergency use Authorization for Coronavirus Disease 2019 during the Public Health Emergency issued on October 26, 2019. Test performed by [facility], [facility] [place], [address] [place] [address]. INFLUENZA A PCR: Negative for Influenza A by RT-PCR INFLUENZA B PCR: Negative for Influenza B by RT-PCR [facility] Note 07-14-2022 Telephone Encounter - Charla Bateman APRN.MANUFACTURING APPLICATIONS ENGINEER - 07/14/2022 11:24 AM EST Note Date & Type Note Facility 07-14-2022 Miscellaneous Notes Formattin g of this note might be different from the original. COVID-19 (Novel Coronavirus): Joans calls today with concerns for COVID19. Symptoms: [...] clean your hands with an alcohol-based hand director of outside sales that contains at least 60% alcohol. Wash your hands often with soap and water for at least 20 seconds, especially after blowing your nose, coughing, or sneezing; going to the bathroom; and before eating or preparing food. If soap and water are not readily available, use an alcohol-based hand director of outside sales with at least 60% alcohol, covering all [...] isolation precautions should be made on a [id number] basis, in consultation with healthcare providers and [...] 20 seconds or use an alcohol-based hand director of outside sales that contains 60 to 95% alcohol, covering [...] with soap and water or alcohol-based hand director of outside sales. Next, remove and dispose of facemask, and immediately clean your hands again with soap and water or alcohol-based hand director of outside sales. Avoid sharing household items with the patient. [...] soap and water or an alcohol-based hand director of outside sales) immediately after removing your gloves. Read and [...] soap and water or an alcohol-based hand director of outside sales) immediately after handling these items. Soap and [...] being coughed on). documented in this encounter [facility] Evaluation note Note Date & Type Note Facility documented in this encounter [facility] Summary Purpose Family History No Family History [...] or prosecute any alcohol or drug abuse patient.[facility] Reason for Visit (unrecogniz ed section and [...] BE BASED ON THE PRIMARY CLINICAL RECORDS. [facility] [employer] [facility]. provides no warranty or guarantee of the accuracy or completeness of information in this document.
[2023-09-01 13:15] LABS: Anion Gap 4 (5-15); BUN 6 mg/dL (7-18); BUN/Creat Ratio 9.6 RATIO (10-20); Calcium,Total 8.9 mg/dL (8.5-10.1); Chloride 98 mmol/L (98-107); Cholesterol 120 mg/dL (200); Creatinine, Serum 0.63 mg/dL (0.70-1.30); EST Glomerular Filtration Rate 154 mL/min (>60); Est Glom Filt Rate - Afr Amer 187 mL/min (>60); Glucose 276 mg/dL (74-106); High Density Lipoprotein 42 mg/dL; Potassium 4.3 mmol/L (3.5-5.1); Sodium Level 136 mmol/L (136-145); Triglycerides 80 mg/dL; Very Low Density Lipoprotein 16 mg/dL (5-40)
== END | disposition home or self-care (01) ==
PROVIDERS: PCP Nurse Practitioner; Referring Provider Nurse Practitioner; Visit Provider Nurse Practitioner
DX: E11.9 Type 2 diabetes mellitus without complications (principal); R16.0 Hepatomegaly, not elsewhere classified
CPT/HCPCS: 36415; 80048; 80061

== ENCOUNTER 2023-11-13 06:23 | Emergency (ER) | payer BC, SELFPAY ==
[2023-11-13] VITALS (25 sets, daily range): BP systolic 102–142; BP diastolic 79–92; PULSE 104–139; RESP 8–26; TEMP 36.4–37.3; O2SAT 89–95; BMI 27.7
--- NOTE | 2023-11-13 06:31 | ED.RN ---
blood sugar 118
--- NOTE | 2023-11-13 06:39 | EDS_ITS ---
HPI <Dr. Enoc Mirza MD - Last Filed: 11/13/23 14:36> History of Present Illness Chief Complaint: Nausea/Vomiting/Diarrhea Detail of Chief Complaint: Viral-like symptoms concern for DKA Informant: patient and spouse/S.O. Onset/Context/Timing Onset: Days Context: Sudden Onset Timing: Continuous and Waxes and wanes Quality: Myalgias arthralgias and see HPI narrative Location: Multisystem Current Severity: Mild Maximum Severity: Severe Worsened by: Vomit every time he attempts to drink something Relieved by: Nothing Associated Symptoms Associated Symptoms: Upper respiratory tract infectious symptoms and concern for DKA Narrative Narrative: Patient is a 33-year-old male with history of type 1 diabetes diagnosed fall of last year. He presents because he is concerned he is in DKA since he has similar symptoms to when he was diagnosed with diabetes. He does complain of subjective fever. He has myalgias arthralgias. He does endorse rhinorrhea, congestion postnasal drainage. Denies sore throat. Does have a cough. Denies dyspnea dyspnea on exertion. The nausea vomiting diarrhea started yesterday. He has had 2 or 3 loose stools. He has had 10+ episodes of vomiting. He denies decreased urine output or darker colored urine. Prior similar symptoms: Yes (DKA fall 2022) Recent Illness/Hospitalization: No PFSH <Dr. Enoc Mirza MD - Last Filed: 11/13/23 14:36> [facility] Medical History Acute hyperglycemia DKA (diabetic ketoacidoses) Encounter for screening for COVID-19 Hypercalcemia Pneumonia Sepsis due to pneumonia Home Medications metformin 500 mg tablet 500 mg PO BIDCM #60 tabs 08/26/23 [Rx Last Taken Unknown] metoprolol tartrate 25 mg tablet 25 mg PO BID #60 tabs 08/26/23 [Rx Last Taken Unknown] needle (disp) 20 G #100 ea 08/26/23 [Rx Last Taken Unknown] blood-glucose meter,continuous (Dexcom G7 Dielectric Embossing Machine Operator) #1 ea 10/06/23 [Rx Last Taken Unknown] blood-glucose sensor (Dexcom G7 Sensor device) #1 ea 10/06/23 [Rx Last Taken Unknown] blood-glucose transmitter (Dexcom G6 Transmitter device) #1 ea 10/06/23 [Rx Last Taken Unknown] lisinopril 20 mg tablet 20 mg PO DAILY #30 tabs 10/06/23 [Rx Last Taken Unknown] benzonatate 200 mg capsule 200 mg PO BID PRN cough #14 caps 11/13/23 [Rx Last Taken Unknown] ondansetron 4 mg disintegrating tablet 4 mg PO Q8H PRN PRN Nausea #10 tabs 11/13/23 [Rx Last Taken Unknown] Allergy/AdvReac Type Severity Reaction Status Date / Time No Known Allergies Allergy Verified 11/13/23 06:29 Family History Father Diabetes Brother Diabetes Other Cancer Social History Smoking Status: Never smoker alcohol intake: current alcohol intake frequency: a few times a week Alcohol type: hard liquor substance use type: former substance user what type of physical activity do you participate in: walking do you feel safe at home: Yes ROS <Dr. Enoc Mirza MD - Last Filed: 11/13/23 14:36> ROS ED Constitutional Constitutional ED: Reports chills, fever(s) and subjective; Denies sweats or weight loss Eyes Eyes: Denies blurry vision, change in vision or diplopia ENT ENT ED: Reports rhinorrhea; Denies ear pain or sore throat Cardiovascular Cardiovascular: Denies chest pain, orthopnea, palpitations or paroxysmal nocturnal dyspnea Respiratory/Chest Respiratory/Chest: Reports cough, dyspnea, sputum and other Details: Sputum is white in color ; Denies dyspnea on exertion, orthopnea or paroxysmal nocturnal dyspnea Gastrointestinal Gastrointestinal: Reports abdominal pain, diarrhea, nausea, vomiting and other Details: Diet denies hematemesis or coffee-ground emesis ; Denies constipation or melena Genitourinary Genitourinary ED: Denies dysuria, hematuria or urinary frequency Musculoskeletal Musculoskeletal: Reports arthralgias and myalgias Integumentary Denies rash Neurologic Neurologic: Reports headache(s) and weakness; Denies paresthesias Psychiatric Psychiatric: Reports anxiety Endocrine Endocrinology: Reports polydipsia; Denies cold intolerance or heat intolerance EXAM <Dr. Enoc Mirza MD - Last Filed: 11/13/23 14:36> Physical Exam Const Vital Signs: 11/13/23 06:26 11/13/23 08:24 11/13/23 06:44 Temperature 97.5 F L Temperature Source Temporal Pulse Rate 120 H 113 H 112 H Respiratory Rate 18 16 11 L Blood Pressure 121/83 H 121/79 H Blood Pressure Mean 95 93 Pulse Ox 93 94 92 Oxygen Delivery Method Room Air Room Air 11/13/23 06:50 11/13/23 07:00 11/13/23 07:10 Temperature Temperature Source Pulse Rate 109 H 111 H 104 H Respiratory Rate 18 20 H 18 Blood Pressure 132/85 H Blood Pressure Mean 98 Pulse Ox 94 92 93 Oxygen Delivery Method 11/13/23 07:20 11/13/23 07:30 11/13/23 07:40 Temperature Temperature Source Pulse Rate 107 H 110 H 110 H Respiratory Rate 8 L 20 H 14 Blood Pressure 131/80 H Blood Pressure Mean 95 Pulse Ox 92 92 92 Oxygen Delivery Method 11/13/23 07:50 11/13/23 08:00 11/13/23 08:10 Temperature Temperature Source Pulse Rate 111 H 115 H 117 H Respiratory Rate 16 21 H 25 H Blood Pressure 121/79 H Blood Pressure Mean 92 Pulse Ox 89 91 92 Oxygen Delivery Method 11/13/23 08:20 11/13/23 08:30 11/13/23 08:40 Temperature Temperature Source Pulse Rate 115 H 115 H 114 H Respiratory Rate 26 H 18 18 Blood Pressure 121/79 H Blood Pressure Mean 91 Pulse Ox 92 92 93 Oxygen Delivery Method 11/13/23 08:50 11/13/23 09:00 11/13/23 09:10 Temperature Temperature Source Pulse Rate 109 H 114 H Respiratory Rate 22 H 14 Blood Pressure 122/79 H Blood Pressure Mean 92 Pulse Ox 93 95 Oxygen Delivery Method 11/13/23 09:20 11/13/23 09:30 11/13/23 09:40 Temperature Temperature Source Pulse Rate 115 H 116 H 121 H Respiratory Rate 24 H 20 H 21 H Blood Pressure 131/83 H Blood Pressure Mean 97 Pulse Ox 94 94 94 Oxygen Delivery Method 11/13/23 09:50 11/13/23 10:00 11/13/23 10:10 Temperature Temperature Source Pulse Rate 133 H 139 H 117 H Respiratory Rate 20 H 24 H 23 H Blood Pressure 102/88 H Blood Pressure Mean 94 Pulse Ox Oxygen Delivery Method 11/13/23 10:50 Temperature 99.2 F H Temperature Source Pulse Rate 115 H Respiratory Rate 24 H Blood Pressure 142/92 H Blood Pressure Mean 108 Pulse Ox 94 Oxygen Delivery Method Positive well nourished and well developed Constitutional Narrative: Patient appears pale and slightly ill. Does not appear toxic or uncomfortable. General Appearance ED: well developed, NAD and pallor HEENT Reports dry mucous membranes HEENT Narrative: Head is atraumatic and normocephalic. Ears normal. There is patent with clear discharge. Posterior pharynx out erythema or exudate. Mouth ED: Yes dry mucous membranes Mouth: dry mucous membranes Eyes PERRL and EOMs intact bilaterally General Eye ED: Negative for pale conjunctiva or scleral icterus Neck no lymphadenopathy, supple and no JVD Chest Wall inspection of chest normal and palpation of chest normal Resp normal respiratory effort and clear to auscultation bilaterally Cardio regular rhythm, S1 normal heart sound, S2 normal heart sound and no murmurs Rate: tachycardic GI normal to inspection, nondistended, normoactive bowel sounds, non-distended and no masses; Negative for non-tender or hepatosplenomegaly Auscultation: normoactive bowel sounds Palpation: soft and tender epigastric Back/Spine no CVA tenderness Extremity normal to inspection General Extremety ED: Negative for edema or tenderness General Extremity: Negative for edema Neuro oriented x3 and CN's II-XII intact bilaterally Sensorium / Orientation: alert Psych mental status grossly normal Skin no rashes or lesions noted, no wounds and skin turgor normal General Skin Exam: pallor; Negative for jaundice <Dr. Ivelisse Renteria MD - Last Filed: 11/13/23 08:53> Physical Exam Const Vital Signs: 11/13/23 06:26 11/13/23 08:24 11/13/23 06:44 Temperature 97.5 F L Temperature Source Temporal Pulse Rate 120 H 113 H 112 H Respiratory Rate 18 16 11 L Blood Pressure 121/83 H 121/79 H Blood Pressure Mean 95 93 Pulse Ox 93 94 92 Oxygen Delivery Method Room Air Room Air 11/13/23 06:50 11/13/23 07:00 11/13/23 07:10 Temperature Temperature Source Pulse Rate 109 H 111 H 104 H Respiratory Rate 18 20 H 18 Blood Pressure 132/85 H Blood Pressure Mean 98 Pulse Ox 94 92 93 Oxygen Delivery Method 11/13/23 07:20 11/13/23 07:30 11/13/23 07:40 Temperature Temperature Source Pulse Rate 107 H 110 H 110 H Respiratory Rate 8 L 20 H 14 Blood Pressure 131/80 H Blood Pressure Mean 95 Pulse Ox 92 92 92 Oxygen Delivery Method 11/13/23 07:50 11/13/23 08:00 11/13/23 08:10 Temperature Temperature Source Pulse Rate 111 H 115 H 117 H Respiratory Rate 16 21 H 25 H Blood Pressure 121/79 H Blood Pressure Mean 92 Pulse Ox 89 91 92 Oxygen Delivery Method 11/13/23 08:20 11/13/23 08:30 11/13/23 08:40 Temperature Temperature Source Pulse Rate 115 H 115 H 114 H Respiratory Rate 26 H 18 18 Blood Pressure 121/79 H Blood Pressure Mean 91 Pulse Ox 92 92 93 Oxygen Delivery Method 11/13/23 08:50 11/13/23 09:00 11/13/23 09:10 Temperature Temperature Source Pulse Rate 109 H 114 H Respiratory Rate 22 H 14 Blood Pressure 122/79 H Blood Pressure Mean 92 Pulse Ox 93 95 Oxygen Delivery Method 11/13/23 09:20 11/13/23 09:30 11/13/23 09:40 Temperature Temperature Source Pulse Rate 115 H 116 H 121 H Respiratory Rate 24 H 20 H 21 H Blood Pressure 131/83 H Blood Pressure Mean 97 Pulse Ox 94 94 94 Oxygen Delivery Method 11/13/23 09:50 11/13/23 10:00 11/13/23 10:10 Temperature Temperature Source Pulse Rate 133 H 139 H 117 H Respiratory Rate 20 H 24 H 23 H Blood Pressure 102/88 H Blood Pressure Mean 94 Pulse Ox Oxygen Delivery Method 11/13/23 10:50 Temperature 99.2 F H Temperature Source Pulse Rate 115 H Respiratory Rate 24 H Blood Pressure 142/92 H Blood Pressure Mean 108 Pulse Ox 94 Oxygen Delivery Method MDM <Dr. Enoc Mirza MD - Last Filed: 11/13/23 14:36> [facility] MDM Narrative Medical decision making narrative: Patient's constellation of symptoms consistent with a viral infection. Will obtain rapid antigen for influenza COVID panel. Since he is diabetic we will obtain BMP to assess glucose, anion gap as well as electrolytes. CBC to assess H&H since he appears very pale as well as white count. Since lungs are clear to auscultation and he is not tachypneic or hypoxic chest x-ray was not obtained. IV fluids were ordered as well as Zofran for his nausea and vomiting. Lab Data Attestation: I reviewed the patient's lab results. Lab results narrative: CBC reveals elevated white count with slight shift. Glucose is 118. Patient has an elevated anion gap with a normal CO2. Blood sugar is 117. Labs: Laboratory Results - last 24 hr 11/13/23 11/13/23 06:30 06:45 WBC 13.1 H RBC 4.85 Hgb 14.2 Hct 41.0 MCV 84.5 MCH 29.3 MCHC 34.6 RDW Std Deviation 36.4 RDW Coeff of Zarina 11.9 Plt Count 167 MPV 8.7 Immature Gran % (Auto) 1.000 H Neut % (Auto) 76.9 H Lymph % (Auto) 7.2 L [place] % (Auto) 13.9 H Eos % (Auto) 0.8 Baso % (Auto) 0.2 Absolute Neuts (auto) 10.0 H Absolute Lymphs (auto) 0.94 Nucleated RBC % 0 Differential Comment SCANNED Diff Path Review May foll Sodium 134 L Potassium 3.6 Chloride 95 L Carbon Dioxide 21.0 Anion Gap 18 H BUN 11 Creatinine 0.84 Estim Creat Clear Calc 138.72 Est GFR (MDRD) Af Amer 134 Est GFR (MDRD) Non-Af 110 BUN/Creatinine Ratio 13.1 Glucose 117 H Calcium 8.7 POC Glucose 118 H Treatment and Re-Evaluation :: Patient was reassessed at 0716. He no longer appears pale. He states he feels much better. He still has no urge to urinate after 1 L. Second liter was ordered. Comments:: Turned over to the morning physician. Awaiting rapid antigen for COVID, RSV and influenza. Patient also will need second liter of normal saline to infuse. <Dr. Ivelisse Renteria MD - Last Filed: 11/13/23 08:53> [facility] Lab Data Labs: Laboratory Results - last 24 hr 11/13/23 11/13/23 06:30 06:45 WBC 13.1 H RBC 4.85 Hgb 14.2 Hct 41.0 MCV 84.5 MCH 29.3 MCHC 34.6 RDW Std Deviation 36.4 RDW Coeff of Zarina 11.9 Plt Count 167 MPV 8.7 Immature Gran % (Auto) 1.000 H Neut % (Auto) 76.9 H Lymph % (Auto) 7.2 L [place] % (Auto) 13.9 H Eos % (Auto) 0.8 Baso % (Auto) 0.2 Absolute Neuts (auto) 10.0 H Absolute Lymphs (auto) 0.94 Nucleated RBC % 0 Differential Comment SCANNED Diff Path Review May foll Sodium 134 L Potassium 3.6 Chloride 95 L Carbon Dioxide 21.0 Anion Gap 18 H BUN 11 Creatinine 0.84 Estim Creat Clear Calc 138.72 Est GFR (MDRD) Af Amer 134 Est GFR (MDRD) Non-Af 110 BUN/Creatinine Ratio 13.1 Glucose 117 H Calcium 8.7 POC Glucose 118 H Treatment and Re-Evaluation Comments:: Turned over to the morning physician. Awaiting rapid antigen for COVID, RSV and influenza. Patient also will need second liter of normal saline to infuse. I was asked to follow-up on the patient's viral swab. Swab for COVID, influenza, and RSV is negative. On repeat evaluation patient continues to state that he does feel improved. He has about 300 cc of IV fluid left. He will be discharged to home following this infusion. He was encouraged to return if symptoms worsen or he does not feel improved, especially given his diabetes history. I will write him a prescription for Tessalon Perles to help with cough as well as Zofran to help with nausea. Discharge Plan Triage Chief Complaint: Nausea/Vomiting/Diarrhea ED Provider: Enoc Mirza Dx/Rx/DC Orders Clinical Impression: Nausea vomiting and diarrhea, Acute dehydration, Systemic viral illness, High anion gap metabolic acidosis, Type 2 diabetes mellitus treated with insulin Instructions: ED Viral Syndrome (Adult) Prescriptions: New benzonatate 200 mg capsule 200 mg PO BID PRN (Reason: cough) Qty: 14 0RF ondansetron 4 mg tablet,disintegrating 4 mg PO Q8H PRN PRN (Reason: Nausea) Qty: 10 0RF No Action (DME) Dexcom G6 Transmitter Device See Rx Instructions .Route Qty: 1 0RF Rx Instructions: As directed (DME) Dexcom G7 Dielectric Embossing Machine Operator Misc See Rx Instructions .Route Qty: 1 0RF Rx Instructions: As directed (DME) Dexcom G7 Sensor Device See Rx Instructions .Route Qty: 1 10RF Rx Instructions: As directed lisinopril 20 mg tablet 20 mg PO DAILY Qty: 30 1RF metformin 500 mg Tablet 500 mg PO BIDCM Qty: 60 1RF metoprolol tartrate 25 mg Tablet 25 mg PO BID Qty: 60 1RF (DME) needle (disp) 20 G 20 x 3/4 needle See Rx Instructions .Route Qty: 100 1RF Rx Instructions: As directed Stand Alone Forms: ED Work / School Excuse Primary Care Provider: Tabitha Lopez Referrals: Shay Gagnon MD [Med Staff - Active Staff] - Keep Enedelia appointment Tabitha Lopez NP-C [Primary Care Provider] - Disposition Disposition: Home, Self Care Discharge Date/Time: 11/13/23 10:51
[2023-11-13] MEDS: 0.9% Normal Saline (1000mL) 1,000 ML 1000 ML IV ×2 (06:42→08:25)
[2023-11-13] MEDS: Ondansetron 4 MG/2 ML Vial IV ×2 (06:42→09:57)
[2023-11-13 06:49] LABS: Bedside Glucose 118 mg/dL (74-106)
[2023-11-13 06:58] LABS: Absolute Lymphocyte Count 0.94 X10^3/uL (0.83-4.51); Basophil# 0.03 X10^3/uL; Basophil% 0.2 % (0-1); Eosinophil# 0.11 X10^3/uL; Eosinophils% 0.8 % (0-5); Hemoglobin 14.2 g/dL (13.0-16.5); Lymphocyte # 0.94 X10^3/ul (0.83-4.51); Lymphocyte % 7.2 % (19-41); Mean Corp Hgb Conc 34.6 g/dL (32-36); Mean Corpuscular Hgb 29.3 pg (27.0-32.0); Mean Corpuscular Volume 84.5 fL (80-94); Mean Platelet Vol. 8.7 fl (6.2-12.0); Monocyte# 1.82 X10^3/uL; Monocyte% 13.9 % (0-10); NRBC Flagged by Analyzer 0 % (0-5); Neutrophil # 10.03 X10^3/uL (2.7-7.7); Neutrophil % 76.9 % (47-70); POSITIVE DIFFERENTIAL YES; POSITIVE MORPHOLOGY YES; Platelet Count 167 K/mm3 (150-450); RBC Distribution Width CV 11.9 % (11.6-14.6); RBC Distribution Width SD 36.4 fl (35.1-43.9); Red Blood Count 4.85 M/mm3 (4.6-6.2); White Blood Count 13.1 K/mm3 (4.4-11.0)
[2023-11-13 07:04] LABS: Differential Indicated SCAN CRITERIA MET
[2023-11-13 07:21] LABS: Anion Gap 18 (5-15); BUN 11 mg/dL (7-18); BUN/Creat Ratio 13.1 RATIO (10-20); Calcium,Total 8.7 mg/dL (8.5-10.1); Chloride 95 mmol/L (98-107); Creatinine, Serum 0.84 mg/dL (0.70-1.30); EST Glomerular Filtration Rate 110 mL/min (>60); Est Glom Filt Rate - Afr Amer 134 mL/min (>60); Estimated Creatinine Clearance 138.72 ml/min; Glucose 117 mg/dL (74-106); Potassium 3.6 mmol/L (3.5-5.1); Sodium Level 134 mmol/L (136-145)
[2023-11-13 09:50] LABS: Differential Comment SCANNED
[2023-11-14 14:26] LABS: Pathologist Review Reviewed
== END 2023-11-13 10:51 | disposition home or self-care (01) ==
PROVIDERS: Emergency Provider Emergency Medicine; PCP Nurse Practitioner; Visit Provider Emergency Medicine
DX: B34.9 Viral infection, unspecified (principal); E11.9 Type 2 diabetes mellitus without complications; Z79.4 Long term (current) use of insulin; E86.0 Dehydration; R19.7 Diarrhea, unspecified; R11.2 Nausea with vomiting, unspecified; R79.89 Other specified abnormal findings of blood chemistry; Z79.84 Long term (current) use of oral hypoglycemic drugs; R50.9 Fever, unspecified
CPT/HCPCS: 80048; 82962; 85025; 87631; 96361; 96374; 96376; 99283; J7030; A4216; J2405

== ENCOUNTER → 2023-11-15 | Outpatient (CLI) | payer BC, SELFPAY ==
--- NOTE | 2023-11-15 09:16 | RAD_ITS ---
STUDY: X-RAY CHEST REASON FOR EXAM: Male, 33 years old. Cough TECHNIQUE: PA and lateral views of the chest. COMPARISON: Comparison is made with prior study dated August 24, 2023. FINDINGS: Progressive consolidation in the left lower lobe with a small left pleural effusion. Normal size heart. Normal mediastinum and maria e. Normal visualized pulmonary arteries. Normal visualized aortic arch and descending thoracic aorta. Normal visualized thoracic spine. Normal visualized ribs, clavicles, and shoulders. There is no demonstrated abnormality of the visualized soft tissue structures of the upper abdomen. RAD/Chest PA and Lateral IMPRESSION: Progressive consolidation in the left lower lobe with a small left pleural effusion. Radiographic follow-up is recommended. Electronically Signed: Kodi Clark MD at 10:46 EDT ,
== END | disposition home or self-care (01) ==
PROVIDERS: PCP Nurse Practitioner; Referring Provider Physician Assistant Surgical; Visit Provider Physician Assistant Surgical
DX: J20.9 Acute bronchitis, unspecified (principal)
CPT/HCPCS: 71046

== ENCOUNTER → 2023-11-17 | Outpatient (CLI) | payer BC, SELFPAY ==
[2023-11-17 15:51] LABS: Hematocrit 40.9 % (40-54); Hemoglobin 14.2 g/dL (13.0-16.5); Mean Corp Hgb Conc 34.7 g/dL (32-36); Mean Corpuscular Hgb 29.3 pg (27.0-32.0); Mean Corpuscular Volume 84.5 fL (80-94); Mean Platelet Vol. 9.3 fl (6.2-12.0); Platelet Count 251 K/mm3 (150-450); RBC Distribution Width CV 12.4 % (11.6-14.6); RBC Distribution Width SD 37.9 fl (35.1-43.9); Red Blood Count 4.84 M/mm3 (4.6-6.2); White Blood Count 4.9 K/mm3 (4.4-11.0)
[2023-11-17 16:14] LABS: ALB/GLOB Ratio 0.4 RATIO (0.9-2.4); AST(SGOT) 78 U/L (15-37); Alanine Aminotransfer ALT/SGPT 88 U/L (16-61); Albumin, Serum 2.3 g/dL (3.2-5.0); Alkaline Phosphatase 133 U/L (45-117); Anion Gap 12 (5-15); BUN 10 mg/dL (7-18); BUN/Creat Ratio 15.7 RATIO (10-20); Chloride 98 mmol/L (98-107); Creatinine, Serum 0.64 mg/dL (0.70-1.30); EST Glomerular Filtration Rate 152 mL/min (>60); Est Glom Filt Rate - Afr Amer 184 mL/min (>60); Globulin 5.4 g/dL (2.2-4.2); Glucose 193 mg/dL (74-106); Magnesium 1.4 mg/dL (1.6-2.6); Potassium 3.1 mmol/L (3.5-5.1); Protein, Total 7.7 g/dL (6.4-8.2); Sodium Level 139 mmol/L (136-145); Vitamin B12 936 pg/mL (211-911)
[2023-11-17 16:21] LABS: Protein, Urine (Random) 55.4 mg/dL (<11.9); Protein:Creat Ratio 533 mg/g CRE (0-200)
== END | disposition home or self-care (01) ==
LOC: BIMLAB 11:52
PROVIDERS: PCP Nurse Practitioner; Referring Provider Nurse Practitioner; Visit Provider Nurse Practitioner
DX: E87.1 Hypo-osmolality and hyponatremia (principal); E11.9 Type 2 diabetes mellitus without complications; J18.9 Pneumonia, unspecified organism
CPT/HCPCS: 36415; 80053; 82570; 82607; 83735; 84156; 85027

== ENCOUNTER → 2023-11-21 | Outpatient (CLI) | payer BC, SELFPAY ==
--- NOTE | 2023-11-21 12:23 | CT_ITS ---
STUDY: CT CHEST WITHOUT CONTRAST REASON FOR EXAM: Male, 33 years old. Left lower lobe pneumonia, recurrent -- looking for empyema RADIATION DOSAGE (If Supplied By Facility): CTDIvol = ( 12.28 ) mGy, DLP = ( 393.37 ) mGycm TECHNIQUE: Transaxial imaging was performed without the administration of intravenous contrast material. Individualized dose optimization techniques were used for this CT. COMPARISON: Comparison is made with prior chest radiograph dated November 15, [address] of the chest dated August 25, 2023.. FINDINGS: CHEST As compared to prior study, there is persistent consolidation in the anterior aspect of the left lower lobe abutting the left major fissure. Patchy infiltrate is also seen along the posterior medial aspect and lateral aspect of the left lower lobe. There has been moderate degree of improvement as compared to prior study. No significant pleural effusion or empyema is seen. There is no demonstrated pleural abnormality. There are calcifications of the coronary arteries. Normal mediastinum. Normal hilar regions. Normal unenhanced pulmonary arteries. Normal aorta arch and descending thoracic aorta. Straightening of the normal thoracic kyphosis. Hepatomegaly and diffuse fatty dictation of the liver. CT/Chest without Contrast IMPRESSION: Residual consolidation in the anterior aspect of the left lower lobe as well as in the posterior medial and lateral aspects of the left lower lobe although there has been a moderate degree of clearing as compared to prior study. No significant pleural effusion is seen. Coronary artery calcification. Electronically Signed: Kodi Clark MD at 13:09 EDT ,
== END | disposition home or self-care (01) ==
LOC: CT 12:23
PROVIDERS: PCP Nurse Practitioner; Referring Provider Nurse Practitioner; Visit Provider Nurse Practitioner
DX: J18.9 Pneumonia, unspecified organism (principal)
CPT/HCPCS: 71250

== ENCOUNTER → 2024-01-12 | Outpatient (CLI) | payer BC, SELFPAY ==
[2024-01-12 12:32] LABS: ALB/GLOB Ratio 1.1 RATIO (0.9-2.4); AST(SGOT) 270 U/L (15-37); Alanine Aminotransfer ALT/SGPT 208 U/L (16-61); Albumin, Serum 3.9 g/dL (3.2-5.0); Alkaline Phosphatase 75 U/L (45-117); Anion Gap 11 (5-15); BUN 5 mg/dL (7-18); BUN/Creat Ratio 8.7 RATIO (10-20); Calcium,Total 10.1 mg/dL (8.5-10.1); Chloride 102 mmol/L (98-107); Creatinine, Serum 0.58 mg/dL (0.70-1.30); EST Glomerular Filtration Rate 170 mL/min (>60); Est Glom Filt Rate - Afr Amer 205 mL/min (>60); Globulin 3.5 g/dL (2.2-4.2); Glucose 120 mg/dL (74-106); Potassium 3.8 mmol/L (3.5-5.1); Protein, Total 7.4 g/dL (6.4-8.2); Sodium Level 141 mmol/L (136-145)
== END | disposition home or self-care (01) ==
LOC: BIMLAB 10:41
PROVIDERS: PCP Nurse Practitioner; Referring Provider Nurse Practitioner; Visit Provider Nurse Practitioner
DX: R16.0 Hepatomegaly, not elsewhere classified (principal)
CPT/HCPCS: 36415; 80053

== ENCOUNTER 2024-12-09 12:11 | Emergency (ER) | payer BC, SELFPAY ==
[2024-12-09 12:11] VITALS: BP 155/104; PULSE 109; RESP 18; TEMP 36.8; O2SAT 99; BMI 27.8
[2024-12-09 13:13] LABS: Absolute Lymphocyte Count 1.17 X10^3/uL (0.83-4.51); Absolute Neutrophil Count 8.4 X10^3/uL (2.0-7.7); Basophil# 0.08 X10^3/uL; Basophil% 0.8 % (0-1); Eosinophil# 0.02 X10^3/uL; Eosinophils% 0.2 % (0-5); Hematocrit 45.8 % (40-54); Hemoglobin 16.1 g/dL (13.0-16.5); Lymphocyte # 1.17 X10^3/ul (0.83-4.51); Lymphocyte % 11.4 % (19-41); Mean Corp Hgb Conc 35.2 g/dL (32-36); Mean Corpuscular Hgb 29.9 pg (27.0-32.0); Mean Corpuscular Volume 85.1 fL (80-94); Mean Platelet Vol. 8.6 fl (6.2-12.0); Monocyte# 0.55 X10^3/uL; Monocyte% 5.4 % (0-10); NRBC Flagged by Analyzer 0 % (0-5); Neutrophil # 8.35 X10^3/uL (2.7-7.7); Neutrophil % 81.7 % (47-70); Platelet Count 247 K/mm3 (150-450); RBC Distribution Width CV 11.7 % (11.6-14.6); RBC Distribution Width SD 35.8 fl (35.1-43.9); Red Blood Count 5.38 M/mm3 (4.6-6.2); White Blood Count 10.2 K/mm3 (4.4-11.0)
--- NOTE | 2024-12-09 13:33 | EDS_ITS ---
HPI <JOSE G Laws - Last Filed: 12/09/24 15:16> History of Present Illness Chief Complaint: Hyperglycemia Narrative Narrative: 34-year-old male with PMH of HTN, DM2 states his blood sugars have been running high for the last few weeks. It has been around 300?4 100s. He takes fast acting insulin before each meal on a sliding scale and is usually around 5 units. He also takes metformin 500 mg once daily. He used to be on Basaglar 10 units daily but has not taken this in several months. He states he has been unable to get in with his primary care office since June 2020 for because his provider left and a subsequent appointment was rescheduled. States about a week ago he had a fever for 1 day and has also had a cough all week. He is concerned because he had pneumonia in the past. He states he had DKA when he was initially diagnosed with diabetes but no episodes since then. PFSH <JOSE G Laws - Last Filed: 12/09/24 15:16> [facility] Medical History (Updated 12/09/24 @ 16:[address] 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) ondansetron 4 mg disintegrating 4 mg PO Q8H PRN PRN Na usea #10 tabs 11/13/23 Unknown Rx tablet albuterol sulfate 90 mcg/actuation 2 puff inhalation Q 4-6H PRN 11/15/23 Unknown Rx aerosol inhaler shortness of breath or wheez ing #6.7 grams spirometers and accessories #1 ea 11/17/23 Unknown Rx magnesium oxide 420 mg tablet 420 mg PO ONCE #1 TAB Unknown Rx potassium chloride 20 mEq 40 meq (2 x 20 mEq) PO ONCE #2 tabs 11/20/23 Unknown Rx tablet,extended release blood-glucose sensor (Dexcom G7 #1 ea 01/12/24 Unknown Rx Sensor device) metformin 500 mg tablet 500 mg PO BIDCM 90 days #180 tabs 01/12/24 Unknown Rx amoxicillin 500 mg tablet 500 mg PO TID #30 tabs 03/06 Unknown Rx ondansetron HCl 4 mg tablet 4 mg PO Q8H PRN nausea and 03/06/24 Unknown Rx vomiting #7 tabs lisinopril 10 mg tablet 10 mg PO BID #90 tabs Unknown Rx metoprolol succinate 25 mg 25 mg PO DAILY #90 tabs 07/21 Unknown Rx tablet,extended release 24 hr blood-glucose transmitter (Dexcom #1 ea 08/07/24 Unkno wn Rx G6 Transmitter device) insulin aspart U-100 100 unit/mL 5 unit (0.05 mL) subc ut TID 30 12/09/24 Unknown Rx (3 mL) subcutaneous pen (Novolog days #15 mL FlexPen U-100 Insulin aspart) insulin glargine 100 unit/mL (3 10 unit (0.1 mL) subcu t QPM 30 12/09/24 Unknown Rx mL) subcutaneous pen (Lantus days #3 mL Solostar U-100 Insulin) lisinopril 10 mg tablet 10 mg PO DAILY 30 days #30 t abs 12/09/24 Unknown Rx Allergy/AdvReac Type Severity Reaction Status Date / Time No Known Allergies Allergy Verified 12/09/24 12:12 Family History Father Diabetes Brother Diabetes Other Cancer Social History Smoking Status: Never smoker alcohol intake: current alcohol intake frequency: a few times a week Alcohol type: hard liquor substance use type: former substance user what type of physical activity do you participate in: walking do you feel safe at home: Yes ROS <JOSE G Laws - Last Filed: 12/09/24 15:16> ROS ED ROS Narrative Constitutional: Negative for fever, chills, malaise. CVS: Negative for chest pain. Respiratory: Positive for cough. GI: Negative for abdominal pain, nausea, vomiting. : Negative for dysuria. EXAM <JOSE G Laws - Last Filed: 12/09/24 15:16> Physical Exam Narrative Exam Narrative: CONST: Patient sitting in no acute distress. EYES: Normal inspection. ENT: Normal inspection, moist mucous membranes. NECK: Normal inspection. RESP: No respiratory distress, CTAB. CVS: Regular rate and rhythm, no murmur, no gallop. SKIN: Color normal, no rash, warm, dry, intact. EXTREMITIES: Normal appearance, no pedal edema. NEURO: Alert and answering questions appropriately. PSYCH: Normal affect. Const Vital Signs: 12/09/24 12:11 12/09/24 13:15 12/09/24 14:11 Temperature 98.2 F Temperature Source Oral Pulse Rate 109 H 87 Respiratory Rate 18 16 Respiratory Effort Normal Respiratory Pattern Normal Blood Pressure 155/104 H 138/98 H Blood Pressure Mean 121 111 Pulse Ox 99 99 Oxygen Delivery Method Room Air Room Air 12/09/24 15:09 Temperature 98 F Temperature Source Pulse Rate 87 Respiratory Rate 16 Respiratory Effort Respiratory Pattern Blood Pressure 138/98 H Blood Pressure Mean 111 Pulse Ox 99 Oxygen Delivery Method <Dr. Clifford Uribe MD - Last Filed: 12/09/24 16:20> Physical Exam Const Vital Signs: 12/09/24 12:11 12/09/24 13:15 12/09/24 14:11 Temperature 98.2 F Temperature Source Oral Pulse Rate 109 H 87 Respiratory Rate 18 16 Respiratory Effort Normal Respiratory Pattern Normal Blood Pressure 155/104 H 138/98 H Blood Pressure Mean 121 111 Pulse Ox 99 99 Oxygen Delivery Method Room Air Room Air 12/09/24 15:09 Temperature 98 F Temperature Source Pulse Rate 87 Respiratory Rate 16 Respiratory Effort Respiratory Pattern Blood Pressure 138/98 H Blood Pressure Mean 111 Pulse Ox 99 Oxygen Delivery Method [facility] <JOSE G Laws - Last Filed: 12/09/24 15:16> [facility] Narrative Medical decision making narrative: Differential includes but not limited to hyperglycemia, DKA, pneumonia 34-year-old male with type 2 diabetes has had elevated blood sugars over the last month. Has also had recent upper respiratory symptoms. He appears well and nontoxic. BP 155/104, HR 109, otherwise normal vital signs. Overall his exam is unremarkable. CBC is within normal limits. Sodium 140, potassium 3.5. Glucose 195, CO2 26.8, anion gap of 19. Ketones are negative. He was treated with IV fluids and his blood sugars actually lower than he has been reporting at home over the last month. CXR and UA negative for infection. Patient clarified the fast acting insulin that he took this morning injection borrowed from a friend and he requires refill of all his insulin. I refilled his aspart, Lantus, and lisinopril and recommended close follow-up with his primary care doctor. He was discharged in stable condition. Lab Data Attestation: I reviewed the patient's lab results. Labs: Laboratory Results - last 24 hr 12/09/24 12/09/24 13:00 14:00 WBC 10.2 RBC 5.38 Hgb 16.1 Hct 45.8 MCV 85.1 MCH 29.9 MCHC 35.2 RDW Std Deviation 35.8 RDW Coeff of Zar[place] 11.7 Plt Count 247 MPV 8.6 Immature Gran % (Auto) 0.500 Neut % (Auto) 81.7 H Lymph % (Auto) 11.4 L [place] % (Auto) 5.4 Eos % (Auto) 0.2 Baso % (Auto) 0.8 Absolute Neuts (auto) 8.4 H Absolute Lymphs (auto) 1.17 Nucleated RBC % 0 Sodium 140 Potassium 3.5 Chloride 92 L Carbon Dioxide 28.6 Anion Gap 19 H BUN 9 Creatinine 0.72 Estim Creat Clear Calc 160.29 Est GFR (MDRD) Non-Af 121 BUN/Creatinine Ratio 12.2 Glucose 195 H Calcium 10.0 b-Hydroxybutyric mmol/L 0.9 Urine Color Yellow Urine Clarity Clear Urine pH 6.5 Ur Specific [place] 1.010 Urine Protein 100 H Urine Glucose (UA) Normal Urine Ketones 15 H Urine Occult Blood 25 H Urine Nitrite Negative Urine Bilirubin Negative Urine Urobilinogen 1 H Ur Leukocyte Esterase Negative Urine RBC 0 SEEN Urine WBC 0 SEEN Ur Squamous Epith Cells 0-5 SEEN Urine Bacteria 0 SEEN Urine Mucus 0 SEEN Radiography Diagnostic Testing: Clinical Impression(s) from Imaging Studies Chest X-Ray 12/09/24 14:40 IMPRESSION: NEGATIVE CHEST Reading Location: [facility] <Dr. Clifford Uribe MD - Last Filed: 12/09/24 16:20> [facility] Lab Data Labs: Laboratory Results - last 24 hr 12/09/24 12/09/24 13:00 14:00 WBC 10.2 RBC 5.38 Hgb 16.1 Hct 45.8 MCV 85.1 MCH 29.9 MCHC 35.2 RDW Std Deviation 35.8 RDW Coeff of [place] 11.7 Plt Count 247 MPV 8.6 Immature Gran % (Auto) 0.500 Neut % (Auto) 81.7 H Lymph % (Auto) 11.4 L [place] % (Auto) 5.4 Eos % (Auto) 0.2 Baso % (Auto) 0.8 Absolute Neuts (auto) 8.4 H Absolute Lymphs (auto) 1.17 Nucleated RBC % 0 Sodium 140 Potassium 3.5 Chloride 92 L Carbon Dioxide 28.6 Anion Gap 19 H BUN 9 Creatinine 0.72 Estim Creat Clear Calc 160.29 Est GFR (MDRD) Non-Af 121 BUN/Creatinine Ratio 12.2 Glucose 195 H Calcium 10.0 b-Hydroxybutyric mmol/L 0.9 Urine Color Yellow Urine Clarity Clear Urine pH 6.5 Ur Specific [place] 1.010 Urine Protein 100 H Urine Glucose (UA) Normal Urine Ketones 15 H Urine Occult Blood 25 H Urine Nitrite Negative Urine Bilirubin Negative Urine Urobilinogen 1 H Ur Leukocyte Esterase Negative Urine RBC 0 SEEN Urine WBC 0 SEEN Ur Squamous Epith Cells 0-5 SEEN Urine Bacteria 0 SEEN Urine Mucus 0 SEEN Radiography Diagnostic Testing: Clinical Impression(s) from Imaging Studies Chest X-Ray 12/09/24 14:40 IMPRESSION: NEGATIVE CHEST Reading Location: [facility] Treatment and Re-Evaluation Comments:: I have personally performed a face to face assessment of the patient and have reviewed the BART Note. I performed a substantive portion of the visit including all aspects of the following. My lester findings include: History is patient with polyuria polydipsia and high blood sugars for over the past month. States he has been out of his medications for months including both his long and short acting insulins. He is also developed a cough within the past week no dyspnea, chest pain, fevers or chills. Exam is lungs clear to auscultation throughout. Well-appearing in no distress. No tachycardia. Abdomen soft nontender nondistended. No pedal edema. Medical Decison Making labs noted, blood sugar 195 likely related to a dose of insulin he was able to secure before coming here. Chest x-ray 2 views on my interpretation normal, no pneumonia. Radiology in agreement. The rest of his labs normal. Patient given refill prescriptions for his medications, advised to follow-up when he can which he plans on. Other additions or changes: [None] Discharge Plan Triage Chief Complaint: Hyperglycemia ED Midlevel Provider: Ayaka Doshi ED Provider: Clifford Uribe Dx/Rx/DC Orders Clinical Impression: Diabetes mellitus with hyperglycemia, Acute upper respiratory infection, Chronic hypertension, Encounter for medication refill Instructions: Diabetes and High Blood Pressure Prescriptions: New lisinopril 10 mg tablet 10 mg PO DAILY 30 Days Qty: 30 1RF insulin glargine [Lantus Solostar U-100 Insulin] 100 unit/mL (3 mL) insulin pen 10 unit subcut QPM 30 Days Qty: 3 0RF insulin aspart U-100 [Novolog FlexPen U-100 Insulin] 100 unit/mL (3 mL) insulin pen 5 unit subcut TID 30 Days Qty: 15 0RF Rx Instructions: per patient's sliding scale No Action (DME) Dexcom G7 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 See Rx Instructions .Route Qty: 1 0RF Rx Instructions: As directed metformin 500 mg tablet 500 mg PO BIDCM 90 Days Qty: 180 1RF (DME) Dexcom G7 Sensor Device See Rx Instructions .Route Qty: 1 10RF Rx Instructions: As directed albuterol sulfate 90 mcg/actuation HFA aerosol inhaler 2 puff inhalation Q4-6H PRN (Reason: shortness of breath or wheezing) Qty: 6.7 0RF (DME) spirometers and accessories Device See Rx Instructions .Route Qty: 1 0RF Rx Instructions: As directed ondansetron HCl 4 mg tablet 4 mg PO Q8H PRN (Reason: nausea and vomiting) Qty: 7 0RF amoxicillin 500 mg tablet 500 mg PO TID Qty: 30 0RF (DME) needle (disp) 20 G 20 x 3/4 needle See Rx Instructions .Route Qty: 100 1RF Rx Instructions: As directed ondansetron 4 mg tablet,disintegrating 4 mg PO Q8H PRN PRN (Reason: Nausea) Qty: 10 0RF magnesium oxide 420 mg tablet 420 mg PO ONCE Qty: 1 0RF potassium chloride 20 mEq tablet extended release 40 meq PO ONCE Qty: 2 0RF metoprolol succinate 25 mg tablet extended release 24 hr 25 mg PO DAILY Qty: 90 0RF lisinopril 10 mg tablet 10 mg PO BID Qty: 90 1RF (DME) Dexcom G6 Transmitter Device See Rx Instructions .ROUTE .COMPLEX Qty: 1 5RF Dose Instruction: USE DIRECTED Rx Instructions: USE DIRECTED Primary Care Provider: Care Physician,No Primary Referrals: NOT,DEFINED [Non-Staff] - Activity Restrictions/Additional Instructions: Your blood sugar is 195 and there are no signs of DKA. I refilled your short acting insulin, long-acting insulin, and blood pressure medication. Call your primary care doctor for follow-up appointment. Print Language: [place] Disposition Disposition: Home, Self Care Discharge Date/Time: 12/09/24 15:12
[2024-12-09 13:40] LABS: Anion Gap 19 (5-15); BUN 9 mg/dL (4-19); BUN/Creat Ratio 12.2 RATIO (10-20); Carbon Dioxide 28.6 mmol/L (21.0-32.0); Chloride 92 mmol/L (98-108); Creatinine, Serum 0.72 mg/dL (0.70-1.20); EST Glomerular Filtration Rate 121 (>60); Estimated Creatinine Clearance 160.29 ml/min (50-250); Glucose 195 mg/dL (70-99); Potassium 3.5 mmol/L (3.3-5.1); Sodium Level 140 mmol/L (133-145)
[2024-12-09 14:11] VITALS: BP 138/98; PULSE 87; RESP 16; O2SAT 99
[2024-12-09 14:13] LABS: Bacteria 0 SEEN /hpf (None Seen); Mucous, Urine 0 SEEN /hpf (<or=2+); Red Blood Cells-Urine 0 SEEN /hpf (0-5); White Blood Cells 0 SEEN /hpf (0-5)
[2024-12-09 14:14] LABS: Color, Urine Yellow (Yellow); Glucose, Dipstick Normal (Normal); Ketone-Dipstick 15 mg/dl (Negative); Leukocyte Esterase-Dipstick Negative /ul (Negative); Nitrite-Dipstick Negative (Negative); Occult Blood-Urine 25 /ul (Negative); Protein-Dipstick 100 mg/dl (Negative); Urine Bilirubin Dipstick Negative (Negative); Urine Clarity Clear (Clear); Urine Urobilinogen 1 mg/dl (Normal); Urine pH 6.5 (5.0 - 8.0)
[2024-12-09 14:19] LABS: Squamous Epithelial Cells - UA 0-5 SEEN /hpf (0-5)
[2024-12-09] MEDS: 0.9% Normal Saline (1000mL) 1,000 ML 999 ML IV (14:23)
[2024-12-09 14:32] LABS: BETA-HYDROXYBUTYRATE 0.9 mmol/L (0.0-0.3)
--- NOTE | 2024-12-09 14:40 | RAD_ITS ---
PROCEDURE: CHEST PA AND LATERAL 12/09/2024 REASON FOR EXAM: COUGH Hyperglycemia. TECHNIQUE: Frontal and lateral views of the chest. COMPARISON: None FINDINGS: Hardware: None Heart: The heart size is normal. Mediastinum: The mediastinal contour is unremarkable. Lungs: The lungs are clear. Bones: The bones are unremarkable. RAD/Chest PA and Lateral IMPRESSION: NEGATIVE CHEST Reading Location: [facility]
[2024-12-09 15:09] VITALS: BP 138/98; PULSE 87; RESP 16; TEMP 36.6; O2SAT 99
== END 2024-12-09 15:12 | disposition home or self-care (01) ==
PROVIDERS: Physician Assistant; Emergency Provider Emergency Medicine; Visit Provider Emergency Medicine
DX: E11.65 Type 2 diabetes mellitus with hyperglycemia (principal); Z79.4 Long term (current) use of insulin; Z76.0 Encounter for issue of repeat prescription; I10 Essential (primary) hypertension; J06.9 Acute upper respiratory infection, unspecified; Z79.84 Long term (current) use of oral hypoglycemic drugs; Z79.899 Other long term (current) drug therapy
CPT/HCPCS: 71046; 80048; 81001; 82010; 85025; 99283

== ENCOUNTER → 2025-01-10 | Outpatient (CLI) | payer BC, SELFPAY ==
[2025-01-10 10:36] LABS: Absolute Lymphocyte Count 1.29 X10^3/uL (0.83-4.51); Absolute Neutrophil Count 3.7 X10^3/uL (2.0-7.7); Basophil% 1.7 % (0-1); Eosinophil# 0.25 X10^3/uL; Eosinophils% 4.2 % (0-5); Hematocrit 41.3 % (40-54); Hemoglobin 13.9 g/dL (13.0-16.5); Lymphocyte # 1.29 X10^3/ul (0.83-4.51); Lymphocyte % 21.7 % (19-41); Mean Corp Hgb Conc 33.7 g/dL (32-36); Mean Platelet Vol. 9.2 fl (6.2-12.0); Monocyte# 0.61 X10^3/uL; Monocyte% 10.3 % (0-10); NRBC Flagged by Analyzer 0 % (0-5); Neutrophil # 3.65 X10^3/uL (2.7-7.7); Neutrophil % 61.4 % (47-70); Platelet Count 271 K/mm3 (150-450); RBC Distribution Width CV 12.7 % (11.6-14.6); RBC Distribution Width SD 41.5 fl (35.1-43.9); Red Blood Count 4.64 M/mm3 (4.6-6.2); White Blood Count 5.9 K/mm3 (4.4-11.0)
[2025-01-10 11:33] LABS: ALB/GLOB Ratio 1.2 RATIO (0.9-2.4); AST(SGOT) 364 U/L (<=37); Alanine Aminotransfer ALT/SGPT 238 U/L (<=46); Albumin, Serum 4.2 g/dL (3.5-5.0); Alkaline Phosphatase 105 U/L (40-129); Anion Gap 12 (5-15); BUN 6 mg/dL (4-19); BUN/Creat Ratio 8.6 RATIO (10-20); Calcium,Total 9.9 mg/dL (7.6-11.0); Carbon Dioxide 27.9 mmol/L (21.0-32.0); Chloride 101 mmol/L (98-108); Creatinine, Serum 0.71 mg/dL (0.70-1.20); EST Glomerular Filtration Rate 122 (>60); Globulin 3.4 g/dL (2.2-4.2); Glucose 85 mg/dL (70-99); Potassium 3.5 mmol/L (3.3-5.1); Protein, Total 7.6 g/dL (5.9-8.4); Sodium Level 141 mmol/L (133-145); Total Bilirubin 0.69 mg/dL (0.00-1.30)
== END | disposition home or self-care (01) ==
LOC: LAB 10:07
DX: E11.9 Type 2 diabetes mellitus without complications (principal)
CPT/HCPCS: 36415; 80053; 85025